=== PATIENT | female | born 1990 | race Two or more races ===

== ENCOUNTER 2016-12-21 13:17 | Emergency (ER) | payer OTHER ==
--- NOTE | 2016-12-21 15:22 | ER Document Report ---
ED General - General Chief Complaint: Chest Pain Stated Complaint: CHEST PAIN, LEFT ARM AND NECK PAIN Time Seen by Provider: 12/21/16 15:15 Mode of Arrival: Ambulatory Information source: Patient Notes: 26-year-old female who is currently on the Mirena to complaints of left-sided chest pain woke her up from sleep at 8 AM this morning. Patient notes it is a sharp pain with radiation to her shoulder down her left arm. Patient admits some shortness of breath with it. Patient denies any fevers or chills nausea vomiting or diarrhea. Patient denies any previous similar episodes. Patient denies any other DVT or PE risk factors TRAVEL OUTSIDE OF THE [place] IN LAST 30 DAYS: No - HPI Onset: Just prior to arrival - 8 a.m. Onset/Duration: Sudden Quality of pain: Sharp Severity: Mild Pain Level: 1 Associated symptoms: Chest pain, Shortness of breath Exacerbated by: Denies Relieved by: Denies Similar symptoms previously: No Recently seen / treated by doctor: No - Related Data Allergies/Adverse Reactions: iodine [Iodine] Allergy (Verified 12/21/16 13:55) Penicillins Allergy (Verified 12/21/16 13:55) Past Medical History - Social History Smoking Status: Never Smoker Cigarette use (# per day): No Chew tobacco use (# tins/day): No Smoking Education Provided: No Frequency of alcohol use: None Drug Abuse: None Family History: CAD - after age 40, DM, Hypertension, Thyroid Disfunction Patient has suicidal ideation: No Patient has homicidal ideation: No Pulmonary Medical History: Reports: Hx Asthma Renal/ Medical History: Denies: Hx Peritoneal Dialysis Past Surgical History: Reports: Hx Section - 2013, Hx Oral Surgery - jaw - Immunizations Hx Diphtheria, Pertussis, Tetanus Vaccination: Yes Review of Systems - Review of Systems Notes: REVIEW OF SYSTEMS: CONSTITUTIONAL : Denies fever, chills, or sweats. Denies recent illness. EENT: Denies eye, ear, throat, or mouth pain or symptoms. Denies nasal or sinus congestion or discharge. Denies throat, tongue, or mouth swelling or difficulty swallowing. CARDIOVASCULAR: Admits to chest pain RESPIRATORY: Admits to shortness of breath GASTROINTESTINAL: Denies abdominal pain or distention. Denies nausea, vomiting , or diarrhea. Denies blood in vomitus, stools, or per rectum. Denies black, tarry stools. Denies constipation. GENITOURINARY: Denies difficulty urinating, painful urination, burning, frequency, blood in urine, or discharge. FEMALE GENITOURINARY: Denies vaginal bleeding, heavy or abnormal periods, irregular periods. Denies vaginal discharge or odor. MUSCULOSKELETAL: Denies back or neck pain or stiffness. Denies joint pain or swelling. SKIN: Denies rash, lesions or sores. HEMATOLOGIC : Denies easy bruising or bleeding. LYMPHATIC: Denies swollen, enlarged glands. NEUROLOGICAL: Denies confusion or altered mental status. Denies passing out or loss of consciousness. Denies dizziness or lightheadedness. Denies headache. Denies weakness or paralysis or loss of use of either side. Denies problems with gait or speech. Denies sensory loss, numbness, or tingling. Denies seizures. PHYSICAL EXAMINATION: GENERAL: Well-appearing, well-nourished and in no acute distress. HEAD: Atraumatic, normocephalic. EYES: Pupils equal round and reactive to light, extraocular movements intact, conjunctiva are normal. ENT: Nares patent, oropharynx clear without exudates. Moist mucous membranes. NECK: Normal range of motion, supple without lymphadenopathy LUNGS: Breath sounds clear to auscultation bilaterally and equal. No wheezes rales or rhonchi. HEART: Regular rate and rhythm without murmurs ABDOMEN: Soft, nontender, nondistended abdomen. No guarding, no rebound. No masses appreciated. Female : deferred Musculoskeletal: Normal range of motion, no pitting or edema. No cyanosis. NEUROLOGICAL: Cranial nerves grossly intact. Normal speech, normal gait. Normal sensory, motor exams PSYCH: Normal mood, normal affect. SKIN: Warm, Dry, normal turgor, no rashes or lesions noted. PSYCHIATRIC: Denies anxiety or stress. Denies depression, suicidal ideation, or homicidal ideation. ALL OTHER SYSTEMS REVIEWED AND NEGATIVE. Dictation was performed using [employer] voice recognition software Physical Exam - Vital signs Vitals: Temp Pulse Resp BP Pulse Ox 97.9 F 84 16 130/78 H 98 12/21/16 13:56 12/21/16 13:56 12/21/16 13:56 12/21/16 13:56 12/21/16 13:56 Course - Re-evaluation Re-evalutation: 12/21/16 15:22 Patient looks very benign, EKG is normal at this time, lab work imaging are pending, will rule out a PE given that patient is extremely low risk with a d- dimer 12/21/16 17:05 D-dimer was not elevated, she has been resting comfortably is in no distress. I will at this point discharge her with close follow-up. Patient is happy with this plan After performing a Medical Screening Examination, I estimate there is LOW risk for RUPTURED ESOPHAGUS, PNEUMOTHORAX, PULMONARY EMBOLISM, ACUTE CORONARY SYNDROME, OR THORACIC AORTIC DISSECTION, thus I consider the discharge disposition reasonable. I have reevaluated this patient multiple times and no significant life threatening changes are noted. The patient and I have discussed the diagnosis and risks, and we agree with discharging home with close follow-up. We also discussed returning to the Emergency Department immediately if new or worsening symptoms occur. We have discussed the symptoms which are most concerning (e.g., bloody sputum, worsening pain or shortness of breath) that necessitate immediate return. - Vital Signs Vital signs: Temp Pulse Resp BP Pulse Ox 97.9 F 84 16 130/78 H 98 12/21/16 13:56 12/21/16 13:56 12/21/16 13:56 12/21/16 13:56 12/21/16 13:56 - Laboratory Result Diagrams: 12/21/16 16:10 12/21/16 16:10 Laboratory results interpreted by me: 12/21/16 16:10 Alkaline Phosphatase 134 H Total Protein 8.5 H - Diagnostic Test Radiology reviewed: Image reviewed, Reports reviewed - EKG Interpretation by [facility] EKG shows normal: Sinus rhythm, [place], Intervals, QRS Complexes Discharge - Discharge Clinical Impression: Chest pain of uncertain etiology Condition: Stable Disposition: HOME, SELF-CARE Instructions: Chest Pain of Unclear Cause ([facility]) Prescriptions: Naproxen 500 mg PO BID #30 tablet Referrals: LEVON DREW MD [ACTIVE STAFF] - Follow up tomorrow
[2016-12-21 16:27] LABS: ABSOLUTE BASOPHILS # (AUTO) 0.1 10^3/uL (0.0-0.2); ABSOLUTE EOSINOPHILS # (AUTO) 0.3 10^3/uL (0.0-0.6); ABSOLUTE LYMPHOCYTES (AUTO) 1.8 10^3/uL (0.5-4.7); ABSOLUTE MONOCYTES (AUTO) 0.5 10^3/uL (0.1-1.4); ABSOLUTE NEUT (AUTO) 4.3 10^3/uL (1.7-8.2); BASOPHILS % (AUTO) 0.9 % (0-2); EOSINOPHILS % (AUTO) 4.8 % (0-6); HEMATOCRIT 39.9 % (36.0-47.0); HEMOGLOBIN 13.1 g/dL (12.0-15.5); HGB HCT DIFFERENCE -0.6; LYMPHOCYTES % (AUTO) 25.5 % (13-45); MEAN CORPUSCULAR HEMOGLOBIN 28.1 pg (27.0-33.4); MEAN CORPUSCULAR HGB CONC 32.7 g/dL (32.0-36.0); MEAN CORPUSCULAR VOLUME 86 fl (80-97); MONOCYTES % (AUTO) 7.5 % (3-13); RED BLOOD COUNT 4.65 10^6/uL (3.72-5.28); RED CELL DISTRIBUTION WIDTH 13.5 % (11.5-14.0); SEGMENTED NEUTROPHILS % (AUTO) 61.3 % (42-78); WHITE BLOOD COUNT 6.9 10^3/uL (4.0-10.5)
[2016-12-21 16:41] LABS: ALANINE AMINOTRANSFERASE 27 U/L (9-52); ALBUMIN 4.6 g/dL (3.5-5.0); ALKALINE PHOSPHATASE 134 U/L (38-126); ANION GAP 14 (5-19); ASPARTATE AMINO TRANSFERASE 27 U/L (14-36); BILIRUBIN,DIRECT 0.3 mg/dL (0.0-0.4); BILIRUBIN,TOTAL 0.4 mg/dL (0.2-1.3); BLOOD UREA NITROGEN 9 mg/dL (7-20); CALCIUM 10.2 mg/dL (8.4-10.2); CARBON DIOXIDE 23 mmol/L (22-30); CHLORIDE 106 mmol/L (98-107); CREATINE KINASE 88 U/L (30-135); CREATININE RESULT 0.71 mg/dL (0.52-1.25); GLUCOSE 87 mg/dL (75-110); POTASSIUM 4.2 mmol/L (3.6-5.0); SODIUM 142.9 mmol/L (137-145); TOTAL PROTEIN 8.5 g/dL (6.3-8.2)
--- NOTE | 2016-12-21 16:42 | RADIOLOGY REPORT (SQ) ---
EXAM DESCRIPTION: CHEST PA/LAT COMPLETED DATE/TIME: 12/21/2016 4:28 pm REASON FOR STUDY: sob COMPARISON: 01/29/2012 EXAM PARAMETERS: NUMBER OF VIEWS: two views TECHNIQUE: Digital Frontal and Lateral radiographic views of the chest acquired. RADIATION DOSE: NA LIMITATIONS: none FINDINGS: LUNGS AND PLEURA: No opacities, masses or pneumothorax. No pleural effusion. MEDIASTINUM AND HILAR STRUCTURES: No masses or contour abnormalities. HEART AND VASCULAR STRUCTURES: Heart normal size. No evidence for failure. BONES: No acute findings. HARDWARE: None in the chest. OTHER: No other significant finding. IMPRESSION: NO SIGNIFICANT RADIOGRAPHIC FINDING IN THE CHEST. TECHNICAL DOCUMENTATION: JOB ID: [id number] [employer]- All Rights Reserved
[2016-12-21 16:57] LABS: CREATINE KINASE MB < 0.22 ng/mL (<4.55); TROPONIN I < 0.012 ng/mL
[2016-12-21] MEDS ORDERED: KETOROLAC TROMETHAMINE INJ/PF 30 MG/1 ML SDV IV ONE (17:05)
[2016-12-21 17:27] VITALS: BP 135/81
--- NOTE | 2016-12-22 11:03 | EKG REPORT ---
SEVERITY:- NORMAL ECG - SINUS RHYTHM : Confirmed by: Thao Louie MD 22-Dec-2016 11:02:44
== END 2016-12-21 17:27 | disposition home or self-care (01) ==
LOC: ER 13:17
DX: R07.9 Chest pain, unspecified (principal); M25.512 Pain in left shoulder; R06.02 Shortness of breath; Z97.5 Presence of (intrauterine) contraceptive device; Z88.0 Allergy status to penicillin
CPT/HCPCS: 93005; 99285; 96374; 36415; 82553; 82550; 85025; 80053; 84484; 85379; 71020; 93010; J1885

== ENCOUNTER → 2017-04-17 | Outpatient (CLI) | payer OTHER ==
--- NOTE | 2017-04-17 10:02 | WOMENS IMAGING REPORT ---
EXAM DESCRIPTION: U/S ABDOMEN LIMITED COMPLETED DATE/TIME: 04/17/2017 7:39 am REASON FOR STUDY: RIGHT UPPER QUADRANT PAIN R10.11 RIGHT UPPER QUADRANT PAIN COMPARISON: None. TECHNIQUE: Dynamic and static grayscale images acquired of the abdomen and recorded on PACS. Additio nal selected color Doppler and spectral images recorded. LIMITATIONS: None. FINDINGS: PANCREAS: Midline pancreas unremarkable LIVER: No masses. Echotexture normal. LIVER VASCULATURE: Normal directional flow of the main portal vein and hepatic veins. GALLBLADDER: No stones. Normal wall thickness. No pericholecystic fluid. ULTRASOUND-DETECTED VEGA'S SIGN: Negative. INTRAHEPATIC DUCTS AND COMMON DUCT: CBD and intrahepatic ducts normal caliber. No filling defects. INFERIOR VENA CAVA: Normal flow. AORTA: No aneurysm. RIGHT KIDNEY: Normal size. Normal echogenicity. No solid or suspicious masses. No hydronephrosis. No calcifications. PERITONEAL AND RIGHT PLEURAL SPACE: No ascites or effusions. OTHER: No other significant findings. IMPRESSION: NORMAL RIGHT UPPER QUADRANT ULTRASOUND. TECHNICAL DOCUMENTATION: JOB ID: [id number] [employer]- All Rights Reserved
== END ==
LOC: WI 06:55
PROVIDERS: ATTEND Surgery
DX: R10.11 Right upper quadrant pain (principal)
CPT/HCPCS: 76705

== ENCOUNTER 2017-04-22 18:59 | Emergency (ER) | payer OTHER ==
--- NOTE | 2017-04-22 19:21 | ER Document Report ---
ED Medical Screen (RME) - General TRAVEL OUTSIDE OF THE U.S. IN LAST 30 DAYS: No - General Chief Complaint: Abdominal Pain Stated Complaint: VAGINAL DISCHARGE,WEAK,NAUSEA Time Seen by Provider: 04/22/17 19:17 Notes: Patient is a 27 year old female presenting to the emergency department for pelvic pain and passing clots of bloody mucus. Patient states she had a positive test on Sunday. Patient does have an IUD. Patient states she took the test because something didn't feel right. Patient states she was having some pelvic pain today so she went to [facility]. Patient states that she had a negative test today at [facility] and states they told her that her pelvic pain was from kidney stones. Patient states after leaving [facility] she passed some bloody mucus tissue. Patient did not get an ultrasound. Patient denies any previous kidney stones. (KEARA MACIAS) - Related Data Allergies/Adverse Reactions: iodine [Iodine] Allergy (Verified 04/22/17 19:07) Penicillins Allergy (Verified 04/22/17 19:07) Past Medical History Pulmonary Medical History: Reports: Hx Asthma Renal/ Medical History: Denies: Hx Peritoneal Dialysis Past Surgical History: Reports: Hx Section - 2013, Hx Oral Surgery - jaw - Immunizations Hx Diphtheria, Pertussis, Tetanus Vaccination: Yes - Vital signs Vitals: Temp Pulse Resp BP Pulse Ox 97.7 F 77 16 142/85 H 99 04/22/17 19:06 04/22/17 19:06 04/22/17 19:06 04/22/17 19:06 04/22/17 19:06 - Notes Notes: GENERAL: Alert, interacts well. No acute distress. LUNGS: Clear to auscultation bilaterally, no wheezes, rales, or rhonchi. No respiratory distress. HEART: Regular rate and rhythm. No murmurs, gallops, or rubs. ABDOMEN: Soft, non-tender. Non-distended. Bowel sounds present in all 4 quadrants. (KEARA MACIAS) Course - Re-evaluation Re-evalutation: 04/22/17 19:49 Discussed with attending physician at [facility] Keith Kevin, states that she had a negative test, transabdominal ultrasound showed normal uterine stripe, there is no comment on the presence or absence of an IUD, pelvic exam was noted as unremarkable in the record, no comment made on strings for IUD. Patient treated for presumptive kidney stone due to abdominal pain. At time of discharge patient was pain free when leaving [facility], given Percocet for pain as well. (DEVANTE TINSLEY) - Vital Signs Vital signs: Temp Pulse Resp BP Pulse Ox 97.7 F 77 16 142/85 H 99 04/22/17 19:06 04/22/17 19:06 04/22/17 19:06 04/22/17 19:06 04/22/17 19:06 Scribe Documentation - Scribe Written by Nicolase:: Sandor Castaneda 04/22/17 19:50 acting as scribe for :: Julio Cesar
[2017-04-22 20:00] LABS: ABSOLUTE EOSINOPHILS # (AUTO) 0.2 10^3/uL (0.0-0.6); ABSOLUTE LYMPHOCYTES (AUTO) 1.6 10^3/uL (0.5-4.7); ABSOLUTE MONOCYTES (AUTO) 0.5 10^3/uL (0.1-1.4); ABSOLUTE NEUT (AUTO) 6.9 10^3/uL (1.7-8.2); BASOPHILS % (AUTO) 0.5 % (0-2); EOSINOPHILS % (AUTO) 2.2 % (0-6); HEMATOCRIT 40.2 % (36.0-47.0); HEMOGLOBIN 13.7 g/dL (12.0-15.5); HGB HCT DIFFERENCE 0.9; LYMPHOCYTES % (AUTO) 16.8 % (13-45); MEAN CORPUSCULAR HEMOGLOBIN 28.2 pg (27.0-33.4); MEAN CORPUSCULAR VOLUME 83 fl (80-97); MONOCYTES % (AUTO) 5.9 % (3-13); RED BLOOD COUNT 4.84 10^6/uL (3.72-5.28); RED CELL DISTRIBUTION WIDTH 13.5 % (11.5-14.0); SEGMENTED NEUTROPHILS % (AUTO) 74.6 % (42-78); WHITE BLOOD COUNT 9.3 10^3/uL (4.0-10.5)
[2017-04-22 20:01] LABS: APPEARANCE,URINE CLEAR; BILIRUBIN,URINE NEGATIVE (NEGATIVE); GLUCOSE, URINE NEGATIVE (NEGATIVE); KETONES,URINE TRACE mg/dL (NEGATIVE); LEUKOCYTE ESTERASE,URINE NEGATIVE (NEGATIVE); NITRITE,URINE NEGATIVE (NEGATIVE); PROTEIN,URINE NEGATIVE (NEGATIVE); URINE SPECIFIC GRAVITY 1.026; UROBILINOGEN,URINE NEGATIVE mg/dL (<2.0)
[2017-04-22 20:11] LABS: ANION GAP 14 (5-19); BLOOD UREA NITROGEN 9 mg/dL (7-20); CARBON DIOXIDE 23 mmol/L (22-30); CHLORIDE 105 mmol/L (98-107); CREATININE RESULT 0.73 mg/dL (0.52-1.25); GLUCOSE 96 mg/dL (75-110); POTASSIUM 3.8 mmol/L (3.6-5.0); SODIUM 142.3 mmol/L (137-145)
--- NOTE | 2017-04-22 21:44 | ER Document Report ---
ED GI/ <JOCELYNE LEDBETTER - Last Filed: 04/22/17 22:59> - General Mode of Arrival: Ambulatory Information source: Patient TRAVEL OUTSIDE OF THE [place] IN LAST 30 DAYS: No - HPI Patient complains to provider of: Abdominal pain Onset: Other - see narrative Quality of pain: Achy Location: Pelvis Similar symptoms previously: Yes Recently seen / treated by doctor: Yes <NEREYDA JORGE - Last Filed: 04/23/17 01:33> - General Chief Complaint: Abdominal Pain Stated Complaint: VAGINAL DISCHARGE,WEAK,NAUSEA Time Seen by Provider: 04/22/17 19:17 Notes: Patient is a 27 year old female that presents to the emergency department today with complaints of pelvic pain and vaginal bleeding. Patient states that she took an at home test a few days ago because "something did not feel right" and it was positive. Patient has a mirena IUD in place. Patient states that she went to [facility] today because of pelvic pain which she has had for a few days. Patient states today at [facility] the doctor did a bedside transabdominal ultrasound and a clean catch urine. Patient states the test there was negative and there was blood in her urine. After calling [facility], there was comment in their records about a normal endometrial stripe but no mention of IUD visualization. Patient states she was told because of the blood in her urine , they believed her pelvic pain was coming from kidney stones however the patient has no history of kidney stones. Patient states she has not had any vaginal discharge. Patient is . (NEREYDA JORGE) - Related Data Allergies/Adverse Reactions: iodine [Iodine] Allergy (Verified 04/22/17 19:07) Penicillins Allergy (Verified 04/22/17 19:07) Past Medical History - General Information source: Patient - Social History Smoking Status: Never Smoker Cigarette use (# per day): No Chew tobacco use (# tins/day): No Frequency of alcohol use: None Drug Abuse: None Lives with: Family Family History: Reviewed & Not Pertinent, CAD - after age 40, DM, Hypertension, Thyroid Disfunction Pulmonary Medical History: Reports: Hx Asthma Endocrine Medical History: Reports: Hx Hypothyroidism Past Surgical History: Reports: Hx Section - 2014, Hx Oral Surgery - jaw - Immunizations Hx Diphtheria, Pertussis, Tetanus Vaccination: Yes <NEREYDA JORGE - Last Filed: 04/23/17 01:33> Review of Systems - Review of Systems Constitutional: No symptoms reported EENT: No symptoms reported Cardiovascular: No symptoms reported Respiratory: No symptoms reported Gastrointestinal: No symptoms reported Genitourinary: No symptoms reported Female Genitourinary: See HPI, - ?, Vaginal bleeding, Other - pelvic pain. denies: Vaginal discharge Musculoskeletal: No symptoms reported Skin: No symptoms reported Hematologic/Lymphatic: No symptoms reported Neurological/Psychological: No symptoms reported -: Yes All other systems reviewed and negative <NEREYDA JORGE - Last Filed: 04/23/17 01:33> Physical Exam - Genitourinary External exam: Normal Speculum exam: Cervix closed - There is some old deng-black bloody debris noted in the vagina. There is no cervical discharge noted. There is no active bleeding. The IUD string is seen. The uterus and adnexa are quite tender on bimanual exam. Bimanuel exam: Cervical motion tender, Adnexal mass - There seems to be a cystic type enlargement to the right ovary that was not felt on the left side. Ultrasound did not confirm this., Adnexal tenderness <JOCELYNE LEDBETTER - Last Filed: 04/22/17 22:59> <NEREYDA JORGE - Last Filed: 04/23/17 01:33> - Vital signs Vitals: Temp Pulse Resp BP Pulse Ox 97.7 F 77 16 142/85 H 99 04/22/17 19:06 04/22/17 19:06 04/22/17 19:06 04/22/17 19:06 04/22/17 19:06 - Notes Notes: Physical Exam: General: Alert, appears well. HEENT: Normocephalic. Atraumatic. PERRL. Extraocular movements intact. Oropharynx clear. Neck: Supple. Non-tender. Respiratory: No respiratory distress. Clear and equal breath sounds bilaterally. Cardiovascular: Regular rate and rhythm. Abdominal: Normal Inspection. Non-tender. No distension. Normal Bowel Sounds. Back: Non-tender. No deformity or step off. Extremities: Moves all four extremities. Upper extremities: Normal inspection. Normal ROM. Lower extremities: Normal inspection. No edema. Normal ROM. Neurological: Normal cognition. AAOx4. Normal speech. Psychological: Normal affect. Normal Mood. Skin: Warm. Dry. Normal color. (LUISITO,NEREYDA) Course - Laboratory Result Diagrams: 04/22/17 19:43 04/22/17 19:43 - Diagnostic Test Radiology reviewed: Reports reviewed - Transvaginal ultrasound is unremarkable showing the IUD in good position. Left ovary is not seen, right ovary no masses or cysts seen. <JOCELYNE LEDBETTER - Last Filed: 04/22/17 22:59> - Laboratory Result Diagrams: 04/22/17 19:43 04/22/17 19:43 <NEREYDA JORGE - Last Filed: 04/23/17 01:33> - Vital Signs Vital signs: Temp Pulse Resp BP Pulse Ox 97.7 F 76 18 126/79 H 98 04/22/17 23:19 04/22/17 23:19 04/22/17 23:19 04/22/17 23:19 04/22/17 23:19 - Laboratory Laboratory results interpreted by me: 04/22/17 19:43 Urine Ketones TRACE H Urine Blood MODERATE H Discharge <JOCELYNE LEDBETTER - Last Filed: 04/22/17 22:59> <NEREYDA JORGE - Last Filed: 04/23/17 01:33> - Discharge Clinical Impression: Pelvic pain, Vaginal bleeding Condition: Stable Disposition: HOME, SELF-CARE Additional Instructions: Pelvic Pain There are many causes of pain in the pelvic area. The cause could be the tubes, ovaries, uterus, intestines, appendix, pelvic muscles and connective tissue, or the urinary tract. The cause of your pelvic pain is not clear. However, it seems safe to treat you outside the hospital. If the pain sounds like a temporary problem, we sometimes wait to see if it goes away. Other patients may need additional tests, such as pelvic ultrasound or cultures. Conditions may change. Call us or come back for reexamination if any problems occur, such as: (1) Pain that becomes more severe, steady, or becomes concentrated in one specific area. Also, pain that is more severe with movement or coughing. (2) Vomiting that persists or becomes more frequent. (3) Blood in the vomitus, urine, or bowel movements. Blood in the stool may have a tarry or black appearance. (4) Shaking chills or fever greater than 100 degrees. (5) The abdomen becomes more distended or swollen. (6) Bowel movements cease. (7) Heavy vaginal bleeding. TAKE THE MEDICATION PRESCRIBED. TAKE IBUPROFEN OR ALEVE FOR PAIN. FOLLOW UP WITH YOUR DOCTOR OR [facility] THIS WEEK FOR RECHECK. Prescriptions: Doxycycline Hyclate 100 mg PO BID #14 tablet Forms: Return to Work Scribe Attestation: 04/22/17 23:04 I personally performed the services described in the documentation, reviewed and edited the documentation which was dictated to the scribe in my presence, and it accurately records my words and actions. (JOCELYNE LEDBETTER) Scribe Documentation - Scribe Written by Sandor:: Sandor Waters, 04/22/2017 [id number] acting as scribe for :: Marge <NEREYDA JORGE - Last Filed: 04/23/17 01:33>
--- NOTE | 2017-04-22 22:56 | RADIOLOGY REPORT (SQ) ---
EXAM DESCRIPTION: U/S NON-OB PELVIS TV W/O DOP COMPLETED DATE/TIME: 04/22/2017 10:37 pm REASON FOR STUDY: IUD, cramps, clots,R ovary mass on bimanual exam COMPARISON: None. TECHNIQUE: Dynamic and static grayscale images acquired of the pelvis via transvaginal approach and recorded on PACS. Additional selected color Doppler and spectral images recorded. LIMITATIONS: Body habitus. FINDINGS: UTERUS: Contour normal. No mass. ENDOMETRIAL STRIPE: No thickening. IUD artifact noted. CERVIX: No nabothian cysts. RIGHT OVARY: No abnormal masses. RIGHT OVARY DOPPLER: Normal arterial vascular flow without evidence for torsion. LEFT OVARY: Ovary not visualized. LEFT OVARY DOPPLER: Ovary not visualized. FREE FLUID: None noted. OTHER: No other significant finding. MEASUREMENTS: UTERUS: 9 x 4 x 6 cm ENDOMETRIAL STRIPE: 5 mm RIGHT OVARY: 2 x 3 x 2 cm LEFT OVARY: Not visualized. IMPRESSION: Normal appearance of the uterus and right ovary. IUD artifact noted. Left ovary not se en. TECHNICAL DOCUMENTATION: JOB ID: [id number]- All Rights Reserved
[2017-04-22] MEDS ORDERED: DOXYCYCLINE HYCLATE 100 MG TABLET PO ONE (23:01)
[2017-04-22] MEDS ORDERED: HYDROCODONE/ACETAMINOPHEN 5-325 MG 6 TAB/DSPK PO PRN (23:01)
[2017-04-22 23:20] VITALS: BP 126/79
[2017-04-22 23:23] LABS: CHLAM PCR NOT DETECTED (NOT DETECT)
== END 2017-04-22 23:20 | disposition home or self-care (01) ==
LOC: ER 18:59
DX: R10.2 Pelvic and perineal pain (principal); N93.8 Other specified abnormal uterine and vaginal bleeding; Z97.5 Presence of (intrauterine) contraceptive device
CPT/HCPCS: 36415; 76830; 80048; 81001; 84703; 85025; 87210; 87491; 87591; 99284

== ENCOUNTER 2017-08-27 08:40 | Emergency (ER) | payer OTHER ==
[2017-08-27] MEDS ORDERED: ASPIRIN 81 MG TABLET, CHEWABLE PO ONE (09:19)
[2017-08-27] MEDS ORDERED: DIPHENHYDRAMINE HCL 50 MG/ML VIAL IV ONE (09:20)
[2017-08-27] MEDS ORDERED: NORMAL SALINE 1000 ML 1,000 ML IV ONE (09:20)
[2017-08-27] MEDS ORDERED: PROCHLORPERAZINE EDISYLATE INJ 10 MG/2 ML VIAL IV ONE (09:21)
[2017-08-27 09:59] LABS: ABSOLUTE EOSINOPHILS # (AUTO) 0.2 10^3/uL (0.0-0.6); ABSOLUTE LYMPHOCYTES (AUTO) 1.3 10^3/uL (0.5-4.7); ABSOLUTE MONOCYTES (AUTO) 0.4 10^3/uL (0.1-1.4); ABSOLUTE NEUT (AUTO) 3.4 10^3/uL (1.7-8.2); BASOPHILS % (AUTO) 0.7 % (0-2); EOSINOPHILS % (AUTO) 4.3 % (0-6); HEMATOCRIT 35.2 % (36.0-47.0); LYMPHOCYTES % (AUTO) 24.7 % (13-45); MEAN CORPUSCULAR HEMOGLOBIN 28.4 pg (27.0-33.4); MEAN CORPUSCULAR HGB CONC 33.9 g/dL (32.0-36.0); MEAN CORPUSCULAR VOLUME 84 fl (80-97); MONOCYTES % (AUTO) 7.1 % (3-13); PLATELET COUNT 247 10^3/uL (150-450); RED BLOOD COUNT 4.21 10^6/uL (3.72-5.28); RED CELL DISTRIBUTION WIDTH 14.5 % (11.5-14.0); SEGMENTED NEUTROPHILS % (AUTO) 63.2 % (42-78); TOTAL CELLS COUNTED % (AUTO) 100 %; WHITE BLOOD COUNT 5.4 10^3/uL (4.0-10.5)
--- NOTE | 2017-08-27 10:05 | RADIOLOGY REPORT (SQ) ---
EXAM DESCRIPTION: CHEST PA/LAT COMPLETED DATE/TIME: 08/27/2017 9:50 am REASON FOR STUDY: cp COMPARISON: [id number] EXAM PARAMETERS: NUMBER OF VIEWS: two views TECHNIQUE: Digital Frontal and Lateral radiographic views of the chest acquired. RADIATION DOSE: NA LIMITATIONS: none FINDINGS: LUNGS AND PLEURA: No opacities, masses or pneumothorax. No pleural effusion. MEDIASTINUM AND HILAR STRUCTURES: No masses or contour abnormalities. HEART AND VASCULAR STRUCTURES: Heart normal size. No evidence for failure. BONES: No acute findings. HARDWARE: None in the chest. OTHER: No other significant finding. IMPRESSION: NO SIGNIFICANT RADIOGRAPHIC FINDING IN THE CHEST. TECHNICAL DOCUMENTATION: JOB ID: [id number] [employer]- All Rights Reserved
--- NOTE | 2017-08-27 10:13 | EKG REPORT ---
SEVERITY:- NORMAL ECG - SINUS RHYTHM : Confirmed by: Antoinette Lopez 27-Aug-2017 10:12:59
[2017-08-27 10:24] LABS: ALANINE AMINOTRANSFERASE 24 U/L (9-52); ALBUMIN 3.9 g/dL (3.5-5.0); ALKALINE PHOSPHATASE 84 U/L (38-126); ANION GAP 9 (5-19); ASPARTATE AMINO TRANSFERASE 22 U/L (14-36); BILIRUBIN,DIRECT 0.3 mg/dL (0.0-0.4); BILIRUBIN,TOTAL 0.4 mg/dL (0.2-1.3); BLOOD UREA NITROGEN 6 mg/dL (7-20); CALCIUM 9.9 mg/dL (8.4-10.2); CARBON DIOXIDE 26 mmol/L (22-30); CHLORIDE 108 mmol/L (98-107); CREATINE KINASE 125 U/L (30-135); GLUCOSE 83 mg/dL (75-110); POTASSIUM 3.1 mmol/L (3.6-5.0); SODIUM 142.7 mmol/L (137-145); TOTAL PROTEIN 6.8 g/dL (6.3-8.2)
[2017-08-27 10:33] LABS: CREATINE KINASE MB < 0.22 ng/mL (<4.55); TROPONIN I < 0.012 ng/mL
[2017-08-27] MEDS ORDERED: POTASSIUM CHLORIDE 10 MEQ TABLET.SA PO ONE ×2 (10:50→11:04)
--- NOTE | 2017-08-27 11:59 | ER Document Report ---
ED General - General Chief Complaint: Headache Stated Complaint: HEADACHE Time Seen by Provider: 08/27/17 09:14 Mode of Arrival: Ambulatory Information source: Patient Notes: Patient presents with left-sided headache that started around 630 this morning. Patient also reports left-sided chest pain that radiates to her shoulder area. Patient complains of tingling to her left hand. Patient denies any arm symptoms. Patient denies any photophobia or phonophobia. Patient denies any fever, nausea, vomiting or dizziness. TRAVEL OUTSIDE OF THE [place] IN LAST 30 DAYS: No - HPI Onset: This morning Onset/Duration: Gradual Pain Level: 4 Associated symptoms: Chest pain, Headache. denies: Nonproductive cough, Productive cough, Diarrhea, Fever, Nausea, Vomiting Exacerbated by: Denies Relieved by: Denies Similar symptoms previously: No Recently seen / treated by doctor: No - Related Data Allergies/Adverse Reactions: iodine [Iodine] Allergy (Verified 04/22/17 19:07) Penicillins Allergy (Verified 04/22/17 19:07) Past Medical History - General Information source: Patient - Social History Smoking Status: Never Smoker Chew tobacco use (# tins/day): No Frequency of alcohol use: None Drug Abuse: None Occupation: clinical services assistant Lives with: Family Family History: Reviewed & Not Pertinent, CAD - after age 42, DM, Hypertension, Thyroid Disfunction Patient has suicidal ideation: No Patient has homicidal ideation: No Pulmonary Medical History: Reports: Hx Asthma Endocrine Medical History: Reports: Hx Hypothyroidism Renal/ Medical History: Denies: Hx Peritoneal Dialysis Past Surgical History: Reports: Hx Abdominal Surgery - Gastric sleeve, Hx Section - 2013, Hx Oral Surgery - jaw - Immunizations Hx Diphtheria, Pertussis, Tetanus Vaccination: Yes Review of Systems - Review of Systems Constitutional: No symptoms reported. denies: Fever, Recent illness EENT: No symptoms reported Cardiovascular: Chest pain. denies: Lightheaded Respiratory: No symptoms reported. denies: Cough, Short of breath Gastrointestinal: No symptoms reported. denies: Nausea, Vomiting Genitourinary: No symptoms reported. denies: Dysuria, Flank pain Female Genitourinary: No symptoms reported. denies: Musculoskeletal: Other - Left-sided chest pain radiates to left shoulder area. denies: Back pain Skin: No symptoms reported Hematologic/Lymphatic: No symptoms reported Neurological/Psychological: Tingling - Left hand Physical Exam - Vital signs Vitals: Temp Pulse Resp BP Pulse Ox 98.4 F 85 12 131/81 H 99 08/27/17 08:45 08/27/17 08:45 08/27/17 08:45 08/27/17 08:45 08/27/17 08:45 - General General appearance: Appears well, Alert In distress: None - HEENT Head: Normocephalic, Atraumatic Eyes: Normal Conjunctiva: Normal Eyelashes: Normal Pupils: PERRL Ears: Normal External canal: Normal Sinus: Normal Nasal: Normal Mucous membranes: Normal Pharynx: Normal Neck: Normal, Supple. No: Lymphadenopathy, Meningismus - Respiratory Respiratory status: No respiratory distress Chest status: Tender. No: Pain with cough Breath sounds: Normal. No: Rales, Rhonchi, Stridor, Wheezing Chest palpation: Tender. No: Subcutaneous emphysema, Wounds - Cardiovascular Rhythm: Regular Heart sounds: S1 appreciated, S2 appreciated Murmur: No - Abdominal Inspection: Normal Tenderness: Nontender - Back Back: Normal, Nontender. No: CVA tenderness - Extremities General upper extremity: Normal inspection, Nontender, Normal color, Normal strength. No: Edema General lower extremity: Normal inspection, Nontender, Normal color, Normal strength. No: Edema - Neurological Neuro grossly intact: Yes Cognition: Normal Jah Coma Scale Eye Opening: Spontaneous [place] Coma Scale Verbal: Oriented Jah Coma Scale Motor: Obeys Commands [place] Coma Scale Total: 15 Speech: Normal Cranial nerves: Normal. No: Facial palsy Motor strength normal: LUE, RUE, LLE, RLE - Psychological Associated symptoms: Normal affect, Normal mood - Skin Skin Temperature: Warm Skin Moisture: Dry Skin Color: Normal Course - Re-evaluation Re-evalutation: 08/27/17 11:00 Patient reports that headache pain has resolved. Patient denies any vomiting or diarrhea. Patient denies any previous history of hypokalemia. Consulted with Dr. Adams regarding patient presentation, recommends giving patient 40 mEq of potassium here in checking her magnesium. And can discharge patient home with 10 mEq daily for the next few days. 08/27/17 12:00 Patient denies any complaints at this time. Discussed importance of following up with her primary doctor in 2 days to have her electrolytes rechecked. Patient encouraged to increase foods rich in potassium in her diet. 08/27/17 12:01 The patient has atypical chest pain as the patient's chest pain is not suggestive of pulmonary embolus, cardiac ischemia, aortic dissection, or other serious etiology. Given the extremely low risk of these diagnoses for the test in evaluation for these possibilities does not appear to be indicated at this time. Patient has been instructed to return if the symptoms worsen or change in any way. No concern for PE, patient PERC negative and heart score of 1. - Vital Signs Vital signs: Temp Pulse Resp BP Pulse Ox 98.4 F 85 15 104/56 L 98 08/27/17 08:45 08/27/17 08:45 08/27/17 12:01 08/27/17 12:01 08/27/17 12:01 - Laboratory Result Diagrams: 08/27/17 09:35 08/27/17 09:35 Laboratory results interpreted by me: 08/27/17 08/27/17 09:35 09:35 Hct 35.2 L RDW 14.5 H Potassium 3.1 L Chloride 108 H BUN 6 L 08/27/17 12:01 Labs- Entire Visit 08/27/17 08/27/17 08/27/17 09:35 09:35 09:35 WBC 5.4 RBC 4.21 Hgb 12.0 Hct 35.2 L MCV 84 MCH 28.4 MCHC 33.9 RDW 14.5 H Plt Count 247 Seg Neutrophils % 63.2 Lymphocytes % 24.7 Monocytes % 7.1 Eosinophils % 4.3 Basophils % 0.7 Absolute Neutrophils 3.4 Absolute Lymphocytes 1.3 Absolute Monocytes 0.4 Absolute Eosinophils 0.2 Absolute Basophils 0.0 Sodium 142.7 Potassium 3.1 L Chloride 108 H Carbon Dioxide 26 Anion Gap 9 BUN 6 L Creatinine 0.65 Est GFR ( Amer) > 60 Est GFR (Non-Af Amer) > 60 Glucose 83 Calcium 9.9 Magnesium Total Bilirubin 0.4 Direct Bilirubin 0.3 Neonat Total Bilirubin Not Reportable Neonat Direct Bilirubin Not Reportable Neonat Indirect Bili Not Reportable AST 22 ALT 24 Alkaline Phosphatase 84 Creatine Kinase 125 CK-MB (CK-2) < 0.22 Troponin I < 0.012 Total Protein 6.8 Albumin 3.9 Serum HCG, Qual 08/27/17 08/27/17 09:35 09:35 WBC RBC Hgb Hct MCV MCH MCHC RDW Plt Count Seg Neutrophils % Lymphocytes % Monocytes % Eosinophils % Basophils % Absolute Neutrophils Absolute Lymphocytes Absolute Monocytes Absolute Eosinophils Absolute Basophils Sodium Potassium Chloride Carbon Dioxide Anion Gap BUN Creatinine Est GFR ( Amer) Est GFR (Non-Af Amer) Glucose Calcium Magnesium 2.0 Total Bilirubin Direct Bilirubin Neonat Total Bilirubin Neonat Direct Bilirubin Neonat Indirect Bili AST ALT Alkaline Phosphatase Creatine Kinase CK-MB (CK-2) Troponin I Total Protein Albumin Serum HCG, Qual NEGATIVE - Diagnostic Test Radiology reviewed: Reports reviewed - EKG Interpretation by Me EKG shows normal: Sinus rhythm Rate: Normal Discharge - Discharge Clinical Impression: Left hand paresthesia, Hypokalemia Chest pain Qualifiers: Chest pain type: unspecified Qualified Code(s): R07.9 - Chest pain, unspecified Headache Qualifiers: Headache type: unspecified Headache chronicity pattern: unspecified pattern Intractability: not intractable Qualified Code(s): R51 - Headache Condition: Stable Disposition: HOME, SELF-CARE Instructions: Intravenous Compazine for Headaches ([facility]), Chest Pain of Unclear Cause ([facility]), Use of Diphenhydramine, Headache ([facility]), Hypokalemia ([facility]) Additional Instructions: Return immediately for any new or worsening symptoms Followup with your primary care provider, call tomorrow to make a followup appointment Recheck with your primary doctor to have your electrolytes rechecked in 2 days. Prescriptions: Potassium Chloride [Klor-Con 10] 10 meq PO DAILY #4 tablet.sa Forms: Return to Work Referrals: [facility] [Provider Group] - Follow up as needed LEVON DREW MD [ACTIVE STAFF] - Follow up as needed
[2017-08-27 12:40] VITALS: BP 104/56
== END 2017-08-27 12:53 | disposition home or self-care (01) ==
LOC: ER 08:40
DX: R20.0 Anesthesia of skin (principal); E87.6 Hypokalemia; R07.9 Chest pain, unspecified; R51 Headache; M25.512 Pain in left shoulder; M79.642 Pain in left hand
CPT/HCPCS: 93005; 99284; 96361; 96374; 96375; 36415; 82553; 82550; 83735; 84703; 85025; 80053; 84484; 71046; 93010; J1200; J0780; J7030

== ENCOUNTER 2017-10-29 08:52 | Emergency (ER) | payer OTHER ==
[2017-10-29] MEDS ORDERED: ALBUTEROL SULFATE 0.083% NEB 2.5 MG/3 ML AMPUL NEB ONE (09:33)
[2017-10-29] MEDS ORDERED: PREDNISONE 20 MG TABLET PO ONE (09:33)
--- NOTE | 2017-10-29 10:04 | ER Document Report ---
ED General - General Chief Complaint: Cough Stated Complaint: DIFFICULTY BREATHING Time Seen by Provider: 10/29/17 09:33 Notes: Patient reports 2 days of shortness of breath and a flare of her asthma. She states she has an inhaler at home but no other asthma medications. It is worse with exertion and better with rest. She denies any pain. She does state she has a chronic constant cough. It is nonproductive. Symptoms are mild to moderate. They are intermittent. There is no known radiation symptoms. TRAVEL OUTSIDE OF THE [place] IN LAST 30 DAYS: No - Related Data Allergies/Adverse Reactions: iodine [Iodine] Allergy (Verified 10/11/17 08:22) Penicillins Allergy (Verified 10/11/17 08:22) Past Medical History - General Information source: Patient - Social History Smoking Status: Never Smoker Chew tobacco use (# tins/day): No Frequency of alcohol use: None Drug Abuse: None Family History: Reviewed & Not Pertinent, CAD - after age 40, DM, Hypertension, Thyroid Disfunction Patient has suicidal ideation: No Patient has homicidal ideation: No Pulmonary Medical History: Reports: Hx Asthma Endocrine Medical History: Reports: Hx Hypothyroidism Renal/ Medical History: Denies: Hx Peritoneal Dialysis Past Surgical History: Reports: Hx Abdominal Surgery - Gastric sleeve, Hx Section - 2013, Hx Oral Surgery - jaw - Immunizations Hx Diphtheria, Pertussis, Tetanus Vaccination: Yes Review of Systems - Review of Systems Constitutional: denies: Chills, Fever Cardiovascular: denies: Chest pain, Palpitations Respiratory: Cough, Short of breath -: Yes All other systems reviewed and negative Physical Exam - Vital signs Vitals: Temp Pulse Resp BP Pulse Ox 98.0 F 111 H 16 129/74 H 98 10/29/17 09:02 10/29/17 09:02 10/29/17 09:02 10/29/17 09:02 10/29/17 09:02 Interpretation: Normal - General General appearance: Appears well, Alert In distress: None - HEENT Head: Normocephalic, Atraumatic Eyes: Normal Pupils: PERRL - Respiratory Respiratory status: No respiratory distress Chest status: Nontender Breath sounds: Normal Chest palpation: Normal - Cardiovascular Rhythm: Regular - HR 98 on my exam Heart sounds: Normal auscultation Murmur: No - Abdominal Inspection: Normal Distension: No distension Bowel sounds: Normal Tenderness: Nontender Organomegaly: No organomegaly - Back Back: Normal, Nontender - Extremities General upper extremity: Normal inspection, Nontender, Normal color, Normal ROM , Normal temperature General lower extremity: Normal inspection, Nontender, Normal color, Normal ROM , Normal temperature, Normal weight bearing. No: Anabella's sign - Neurological Neuro grossly intact: Yes Cognition: Normal Orientation: AAOx4 [place] Coma Scale Eye Opening: Spontaneous [place] Coma Scale Verbal: Oriented [place] Coma Scale Motor: Obeys Commands Jah Coma Scale Total: 15 Speech: Normal Motor strength normal: LUE, RUE, LLE, RLE Sensory: Normal - Psychological Associated symptoms: Normal affect, Normal mood - Skin Skin Temperature: Warm Skin Moisture: Dry Skin Color: Normal Course - Re-evaluation Re-evalutation: 10/29/17 10:00 feels better after neb - Vital Signs Vital signs: Temp Pulse Resp BP Pulse Ox 98.0 F 111 H 16 129/74 H 98 10/29/17 09:02 10/29/17 09:02 10/29/17 09:02 10/29/17 09:02 10/29/17 09:02 Discharge - Discharge Clinical Impression: Acute asthma exacerbation Qualifiers: Asthma severity: mild Asthma persistence: intermittent Qualified Code(s): J45.21 - Mild intermittent asthma with (acute) exacerbation Condition: Stable Disposition: HOME, SELF-CARE Instructions: Asthma ([facility]) Additional Instructions: Please call your family doctor as soon as possible to arrange follow-up Prescriptions: Codeine/Promethazine HCl [Promethazine-Codeine Syrup] 10 ml PO Q4 PRN 4 Days #1 bottle PRN Reason: Prednisone 60 mg PO DAILY 5 Days #15 tablet Sulfamethoxazole/Trimethoprim [Bactrim Ds Tablet] 1 each PO BID 7 Days #14 tablet Forms: Return to Work
[2017-10-29 10:13] VITALS: BP 134/75
== END 2017-10-29 10:20 | disposition home or self-care (01) ==
LOC: ER 08:52
DX: J45.21 Mild intermittent asthma with (acute) exacerbation (principal); Z88.0 Allergy status to penicillin
CPT/HCPCS: 94640; 99283; J7512

== ENCOUNTER → 2017-11-15 | Outpatient (CLI) | payer OTHER | LOC: OD 08:19 | PROVIDERS: ATTEND Nurse Practitioner Family | DX: N91.2 Amenorrhea, unspecified (principal) | CPT/HCPCS: 36415; 84702 ==

== ENCOUNTER 2018-01-24 17:12 | Emergency (ER) | payer OTHER ==
--- NOTE | 2018-01-24 17:53 | ER Document Report ---
ED Medical Screen (RME) - General Chief Complaint: Pelvic Pain Stated Complaint: PELVIC PAIN Time Seen by Provider: 01/24/18 17:41 Mode of Arrival: Ambulatory Information source: Patient Notes: I have greeted and performed a rapid initial assessment of this patient. A comprehensive ED assessment and evaluation of the patient, analysis of test results and completion of the medical decision making process will be conducted by additional ED providers. 27-year-old female presents emergency department with complaints of sharp and stabbing pelvic pain. Patient states that she has a history of ovarian cysts and feels that this pain is similar in nature. No alleviating or exacerbating factors. She denies any nausea, vomiting, diarrhea, constipation, dysuria, hematuria, vaginal bleeding or discharge. PHYSICAL EXAMINATION: GENERAL: Patient hunched over in mild distress. HEAD: Atraumatic, normocephalic. EYES: Pupils equal round extraocular movements intact, conjunctiva are normal. ENT: Nares patent NECK: Normal range of motion LUNGS: No respiratory distress Musculoskeletal: Normal range of motion Abdominal: Suprapubic tenderness to palpation. Normal active bowel sounds. NEUROLOGICAL: Normal speech, normal gait. PSYCH: Normal mood, normal affect. SKIN: Warm, Dry, normal turgor, no rashes or lesions noted. TRAVEL OUTSIDE OF THE [place] IN LAST 30 DAYS: No - Related Data Allergies/Adverse Reactions: iodine [Iodine] Allergy (Verified 01/24/18 17:13) Penicillins Allergy (Verified 01/24/18 17:13) Past Medical History Pulmonary Medical History: Reports: Hx Asthma Endocrine Medical History: Reports: Hx Hypothyroidism Renal/ Medical History: Denies: Hx Peritoneal Dialysis Past Surgical History: Reports: Hx Abdominal Surgery - Gastric sleeve, Hx Section - 2013, Hx Oral Surgery - jaw - Immunizations Hx Diphtheria, Pertussis, Tetanus Vaccination: Yes Physical Exam - Vital signs Vitals: Temp Pulse Resp BP Pulse Ox 97.9 F 95 14 129/59 H 98 01/24/18 17:19 01/24/18 17:19 01/24/18 17:19 01/24/18 17:19 01/24/18 17:19 Course - Vital Signs Vital signs: Temp Pulse Resp BP Pulse Ox 97.9 F 95 14 129/59 H 98 01/24/18 17:19 01/24/18 17:19 01/24/18 17:19 01/24/18 17:19 01/24/18 17:19 Doctor's Discharge - Discharge Referrals: KIM ULLOA, [facility] [facility] [Primary Care Provider] - Follow up as needed
--- NOTE | 2018-01-24 19:23 | RADIOLOGY REPORT (SQ) ---
EXAM DESCRIPTION: U/S OB TRANSVAG W/DOPPLER COMPLETED DATE/TIME: 01/24/2018 7:09 pm REASON FOR STUDY: pelvic pain COMPARISON: None. TECHNIQUE: Transvaginal and transabdominal static and realtime grayscale images acquired of the pelv is. Additional selected spectral and color Doppler images recorded. All images stored on PACs. bHCG: Not available. CLINICAL DATES: LMP 01/06/2018 2 weeks 4 days LIMITATIONS: None. FINDINGS: No intrauterine gestation. UTERUS: No masses or anomalies. 9.4 x 4.6 x 4.7 cm. CERVICAL LENGTH: 3.6 cm. Closed. RIGHT ADNEXA: Ovary not seen. No adnexal free fluid. No adnexal masses. LEFT ADNEXA: 2.8 x 2.2 x 2.1 cm. Normal blood flow. There is a 17 mm some very slightly echogenic a melchor within the ovary that has a hypoechoic center. No adnexal free fluid. No adnexal masses. FREE FLUID: None. OTHER: No other significant finding. IMPRESSION: 1. There is no intrauterine gestation. 2. There is a slightly echogenic area in the left ovary with a hypoechoic center. This could repres ent involuting cyst. Is there a positive test? If so cannot exclude an ectopic. 3. Follow-up as clinically indicated. TECHNICAL DOCUMENTATION: JOB ID: [id number] [employer]- All Rights Reserved Reading location - IP/workstation name: [email or web address]
[2018-01-24 21:23] LABS: APPEARANCE,URINE CLEAR; BILIRUBIN,URINE NEGATIVE (NEGATIVE); COLOR,URINE YELLOW; GLUCOSE, URINE NEGATIVE (NEGATIVE); KETONES,URINE TRACE mg/dL (NEGATIVE); LEUKOCYTE ESTERASE,URINE NEGATIVE (NEGATIVE); NITRITE,URINE NEGATIVE (NEGATIVE); PROTEIN,URINE 30 mg/dL (NEGATIVE); URINE SPECIFIC GRAVITY 1.031
[2018-01-24] MEDS ORDERED: IPRATROPIUM/ALBUTEROL 0.5-2.5 MG/3 ML AMPUL NEB ONE (22:01)
[2018-01-24 22:17] LABS: T.VAGINALIS (WET MOUNT) NO TRICHOMONAS SEEN; WBCS (WET MOUNT) NO WBCS SEEN; YEAST (WET MOUNT) NO YEAST SEEN
--- NOTE | 2018-01-24 22:53 | ER Document Report ---
ED General - General Chief Complaint: Pelvic Pain Stated Complaint: PELVIC PAIN Time Seen by Provider: 01/24/18 17:41 Mode of Arrival: Ambulatory TRAVEL OUTSIDE OF THE [place] IN LAST 30 DAYS: No - HPI Patient complains to provider of: Lower pelvic pain Notes: Patient coming in for evaluation of low pelvic pain. Patient states history of ovarian cyst in the past. Patient also states having a slight vaginal discharge. Patient states history of STDs back in 2011 otherwise no other significant history. Patient denies any fevers chills nausea vomiting diarrhea. - Related Data Allergies/Adverse Reactions: iodine [Iodine] Allergy (Verified 01/24/18 17:13) Penicillins Allergy (Verified 01/24/18 17:13) Past Medical History - General Information source: Patient - Social History Smoking Status: Never Smoker Family History: Reviewed & Not Pertinent, CAD - after age 40, DM, Hypertension, Thyroid Disfunction Patient has suicidal ideation: No Patient has homicidal ideation: No Pulmonary Medical History: Reports: Hx Asthma Endocrine Medical History: Reports: Hx Hypothyroidism Renal/ Medical History: Denies: Hx Peritoneal Dialysis Past Surgical History: Reports: Hx Abdominal Surgery - Gastric sleeve, Hx Section - 2013, Hx Oral Surgery - jaw - Immunizations Hx Diphtheria, Pertussis, Tetanus Vaccination: Yes Review of Systems - Review of Systems Constitutional: No symptoms reported EENT: No symptoms reported Cardiovascular: No symptoms reported Respiratory: No symptoms reported Gastrointestinal: No symptoms reported Genitourinary: No symptoms reported Female Genitourinary: No symptoms reported, Vaginal discharge, Other - Pelvic pain Musculoskeletal: No symptoms reported Skin: No symptoms reported Hematologic/Lymphatic: No symptoms reported Neurological/Psychological: No symptoms reported -: Yes All other systems reviewed and negative Physical Exam - Vital signs Vitals: Temp Pulse Resp BP Pulse Ox 97.9 F 95 14 129/59 H 98 01/24/18 17:19 01/24/18 17:19 01/24/18 17:19 01/24/18 17:19 01/24/18 17:19 Interpretation: Normal - General General appearance: Appears well, Alert - HEENT Head: Normocephalic, Atraumatic Eyes: Normal Pupils: PERRL - Respiratory Respiratory status: No respiratory distress Chest status: Nontender Breath sounds: Normal Chest palpation: Normal - Cardiovascular Rhythm: Regular Heart sounds: Normal auscultation Murmur: No - Abdominal Inspection: Normal Distension: No distension Bowel sounds: Normal Tenderness: Nontender Organomegaly: No organomegaly - Genitourinary External exam: Normal Speculum exam: Other - Mild white discharge cervix looks to be normal Bimanuel exam: Normal - Back Back: Normal, Nontender - Extremities General upper extremity: Normal inspection, Nontender, Normal color, Normal ROM , Normal temperature General lower extremity: Normal inspection, Nontender, Normal color, Normal ROM , Normal temperature, Normal weight bearing. No: Anabella's sign - Neurological Neuro grossly intact: Yes Cognition: Normal Orientation: AAOx4 Jah Coma Scale Eye Opening: Spontaneous [place] Coma Scale Verbal: Oriented Jah Coma Scale Motor: Obeys Commands [place] Coma Scale Total: 15 Speech: Normal Motor strength normal: LUE, RUE, LLE, RLE Sensory: Normal - Psychological Associated symptoms: Normal affect, Normal mood - Skin Skin Temperature: Warm Skin Moisture: Dry Skin Color: Normal Course - Re-evaluation Re-evalutation: 01/25/18 00:14 Wet mount does not show any significant pathology. Patient defers treatment at this time prophylactically for gonorrhea chlamydia. Patient does have a slight ovarian cyst test is negative more likely pain related to the ovarian cyst patient's testing did return positive for gonorrhea. Did the charge nurse be aware patient will need to come back for a shot of Rocephin - Vital Signs Vital signs: Temp Pulse Resp BP Pulse Ox 98.2 F 92 16 128/74 H 99 01/24/18 23:05 01/24/18 23:05 01/24/18 23:05 01/24/18 23:05 01/24/18 23:05 - Laboratory Laboratory results interpreted by me: 01/24/18 01/24/18 20:59 21:54 Urine Protein 30 H Urine Ketones TRACE H Urine Urobilinogen 2.0 H Urine Ascorbic Acid 40 H N.gonorrhoeae DNA (PCR) DETECTED H Discharge - Discharge Clinical Impression: Vaginal discharge, Gonorrhea Ovarian cyst Qualifiers: Laterality: unspecified laterality Qualified Code(s): N83.209 - Unspecified ovarian cyst, unspecified side Disposition: HOME, SELF-CARE Instructions: Ovarian Cyst ([facility]), Gonorrhea ([facility]) Additional Instructions: Laboratory results today show that you are not . Ultrasound does show a ovarian cyst more likely causing your abdominal pain. I would recommend taking Tylenol Motrin together for pain control. 600 mg of Motrin along with thousand milligrams of Tylenol. Do this 3 times a day. Please make sure you are drinking plenty water to stay hydrated. Please return to ER for any other concerns. Swabs 90 not showing signs of bacterial vaginosis trichomonas or yeast infection. Gonorrhea and Chlamydia results are pending. Would recommend she call the ER tomorrow during business hours 8 5 for your results. Your testing does show that you are positive for gonorrhea. You will need to be treated please make sure that you have your sexual partners treated as well no sexual intercourse for 2 weeks. Prescriptions: Ibuprofen [Motrin 600 mg Tablet] 600 mg PO Q8HP PRN #90 tablet PRN Reason: Referrals: KIM ULLOA FNP-C [NO LOCAL MD] - Follow up as needed
[2018-01-24 23:08] VITALS: BP 128/74
[2018-01-24 23:48] LABS: CHLAM PCR NOT DETECTED (NOT DETECT)
[2018-01-25 00:12] LABS: GON PCR DETECTED (NOT DETECT)
== END 2018-01-24 23:07 | disposition home or self-care (01) ==
LOC: ER 17:12
DX: N83.201 Unspecified ovarian cyst, right side (principal); A54.9 Gonococcal infection, unspecified; R10.2 Pelvic and perineal pain; E03.9 Hypothyroidism, unspecified; Z88.0 Allergy status to penicillin
CPT/HCPCS: 94640; 99284; 36415; 87210; 84702; 81025; 81001; 87491; 87591; 76817; 93976; J7620

== ENCOUNTER 2018-01-25 16:37 | Emergency (ER) | payer OTHER ==
[2018-01-25 16:41] VITALS: BP 119/84
[2018-01-25] MEDS ORDERED: AZITHROMYCIN 250 MG TABLET PO ONE (16:46)
[2018-01-25] MEDS ORDERED: LIDOCAINE 1% INJ-PF (10 MG/ML) 30 ML SDV INJ ONE (16:46)
[2018-01-25] MEDS ORDERED: CEFTRIAXONE INJ 250 MG VIAL IM ONE (16:46)
--- NOTE | 2018-01-25 16:58 | ER Document Report ---
HPI - HPI Pain Level: 0 Notes: Patient is a 27-year-old female who presents to the ED for treatment for gonorrhea. Patient was evaluated yesterday and had a positive gonorrhea test and was notified this morning to come to the emergency department for treatment. Patient has no other new concerns or complaints. She continues to have right lower pelvic pain that was deemed to be a small ovarian cyst. Patient states that she is otherwise eating and drinking without difficulties. She is urinating normally and having normal bowel movements. Patient is accompanied by her partner who will be going to the health department for treatment. No other concerns or complaints at this time. Patient states that she has had Rocephin in the past as noted in her medical history as well. Denies any headache, fever, URI, sore throat, chest pain, palpitations, syncope , cough, shortness of breath, wheeze, dyspnea, nausea/vomiting/diarrhea, urinary retention, dysuria, hematuria, loss of control of bowel or bladder, numbness/tingling, saddle anesthesia, muscle paralysis/weakness, or rash. - ROS Systems Reviewed and Negative: Yes All other systems reviewed and negative - REPRODUCTIVE Reproductive: REPORTS: : Past Medical History - Social History Smoking Status: Unknown if Ever Smoked Family History: Reviewed & Not Pertinent, CAD - after age 40, DM, Hypertension, Thyroid Disfunction Pulmonary Medical History: Reports: Hx Asthma Endocrine Medical History: Reports: Hx Hypothyroidism Renal/ Medical History: Denies: Hx Peritoneal Dialysis Past Surgical History: Reports: Hx Abdominal Surgery - Gastric sleeve, Hx Section - 2013, Hx Oral Surgery - jaw - Immunizations Hx Diphtheria, Pertussis, Tetanus Vaccination: Yes Vertical Provider Document - CONSTITUTIONAL Agree With Documented VS: Yes Notes: PHYSICAL EXAMINATION: GENERAL: Well-appearing, well-nourished and in no acute distress. LUNGS: Breath sounds clear to auscultation bilaterally and equal. No wheezes rales or rhonchi. HEART: Regular rate and rhythm without murmurs, rubs, gallops. ABDOMEN: Soft, nondistended abdomen. No guarding, no rebound. No masses appreciated. Normal bowel sounds present. No CVA tenderness bilaterally. + mild tenderness rt lower pelvic (same as yesterday per patient). Musculoskeletal: FROM to passive/active. Strength 5+/5. Extremities: No cyanosis, clubbing, or edema b/l. Peripheral pulses 2+. Capillary refill less than 3 seconds. NEUROLOGICAL: Normal speech, normal gait. PSYCH: Normal mood, normal affect. SKIN: Warm, Dry, normal turgor, no rashes or lesions noted. - INFECTION CONTROL TRAVEL OUTSIDE OF THE [place] IN LAST 30 DAYS: No Course - Re-evaluation Re-evalutation: 01/25/18 16:56 Patient is an afebrile, well-hydrated, 27-year-old female who presents to the ED with a positive gonorrhea test. Vitals are acceptable without any significant tachycardia, tachypnea, or hypoxia. PE is otherwise unremarkable. No other labs or imaging warranted at this time based on H&P. Patient is nontoxic-appearing and is tolerating p.o. without any difficulties. Zithromax and Rocephin given today. Recheck with your PCM in 3-5 days. Go to the health department for further evaluation and testing. Return to the ED with any worsening/concerning symptoms otherwise as reviewed in discharge. Patient is in agreement. - Vital Signs Vital signs: Temp Pulse Resp BP Pulse Ox 99.0 F 99 20 119/84 98 01/25/18 16:41 01/25/18 16:41 01/25/18 16:41 01/25/18 16:41 01/25/18 16:41 Discharge - Discharge Clinical Impression: Pelvic pain, Gonorrhea Condition: Stable Disposition: HOME, SELF-CARE Instructions: Gonorrhea ([facility]) Additional Instructions: Push fluids (i.e. water, cranberry juice) Proper hygenic technique Keep the skin clean Safe sexual practices with condoms everytime Tylenol/ibuprofen as needed May use over the counter AZO for burning with urination Check in with the health department this week for further testing* Return immediately if symptoms worsen F/u with your PCM in 2-3 days for a recheck Return to the ED with any development of PONCE/fever, trouble with vision, eye redness, worsening pain, urethral discharge, urinary retention, blood in the urine, flank pain, abdominal pain, n/v, Chest Pain, shortness of breath, joint pains, trouble breathing, or any other worsening/concerning symptoms as needed otherwise. [facility] [NO LOCAL MD] - Follow up in 3-5 days
== END 2018-01-25 17:15 | disposition home or self-care (01) ==
LOC: ER 16:37
DX: A54.9 Gonococcal infection, unspecified (principal); R10.2 Pelvic and perineal pain; J45.909 Unspecified asthma, uncomplicated
CPT/HCPCS: 99283; 96372; J3490; J0696

== ENCOUNTER 2018-01-29 04:25 | Emergency (ER) | payer OTHER ==
[2018-01-29 05:53] LABS: APPEARANCE,URINE CLOUDY; BILIRUBIN,URINE NEGATIVE (NEGATIVE); COLOR,URINE AMBER; GLUCOSE, URINE NEGATIVE (NEGATIVE); KETONES,URINE NEGATIVE (NEGATIVE); LEUKOCYTE ESTERASE,URINE LARGE (NEGATIVE); NITRITE,URINE NEGATIVE (NEGATIVE); PROTEIN,URINE 30 mg/dL (NEGATIVE); URINE SPECIFIC GRAVITY 1.031
[2018-01-29] MEDS ORDERED: FLUCONAZOLE 100 MG TABLET PO ONE (06:42)
--- NOTE | 2018-01-29 06:42 | ER Document Report ---
ED GI/ - General Mode of Arrival: Ambulatory Information source: Patient TRAVEL OUTSIDE OF THE [place] IN LAST 30 DAYS: No - General Chief Complaint: Vaginal Pain Stated Complaint: VAGINAL PAIN Time Seen by Provider: 01/29/18 06:28 Notes: 27-year-old female presenting to the emergency department today with complaints of vaginal irritation, itching, and swelling. Patient was treated 4 days ago for gonorrhea. Patient states this itching, irritation, and swelling began after starting the antibiotic for the gonorrhea. (NEREYDA JORGE) - Related Data Allergies/Adverse Reactions: iodine [Iodine] Allergy (Verified 01/29/18 05:01) Penicillins Allergy (Verified 01/29/18 05:01) Past Medical History - General Information source: Patient Last Menstrual Period: 01/06 - Social History Smoking Status: Never Smoker Cigarette use (# per day): No Chew tobacco use (# tins/day): No Frequency of alcohol use: None Drug Abuse: None Lives with: Family Family History: Reviewed & Not Pertinent, CAD - after age 40, DM, Hypertension, Thyroid Disfunction Patient has suicidal ideation: No Patient has homicidal ideation: No Pulmonary Medical History: Reports: Hx Asthma Endocrine Medical History: Reports: Hx Hypothyroidism Renal/ Medical History: Reports: Hx Peritoneal Dialysis Past Surgical History: Reports: Hx Abdominal Surgery - Gastric sleeve, Hx Section - 2013, Hx Oral Surgery - jaw - Immunizations Hx Diphtheria, Pertussis, Tetanus Vaccination: Yes Review of Systems - Review of Systems Constitutional: No symptoms reported EENT: No symptoms reported Cardiovascular: No symptoms reported Respiratory: No symptoms reported Gastrointestinal: No symptoms reported Genitourinary: No symptoms reported Female Genitourinary: See HPI, Other - vaginal pain Musculoskeletal: No symptoms reported Skin: No symptoms reported Hematologic/Lymphatic: No symptoms reported Neurological/Psychological: No symptoms reported -: Yes All other systems reviewed and negative Physical Exam - Vital signs Vitals: Temp Pulse Resp BP Pulse Ox 98.6 F 77 16 120/75 97 01/29/18 04:30 01/29/18 04:30 01/29/18 04:30 01/29/18 04:30 01/29/18 04:30 - Notes Notes: Physical Exam: General: Alert, appears well. HEENT: Normocephalic. Atraumatic. PERRL. Extraocular movements intact. Oropharynx clear. Neck: Supple. Non-tender. Respiratory: No respiratory distress. Clear and equal breath sounds bilaterally. Cardiovascular: Regular rate and rhythm. Abdominal: Normal Inspection. Non-tender. No distension. Normal Bowel Sounds. Female Genitourinary: Exam performed with female nurse in attendance --no ulcerations or inguinal lymphadenopathy to suggest herpes. Labia are swollen bilaterally, no external lesions, inside of the labia are raw, irritated, and somewhat friable. Back: Non-tender. No deformity or step off. Extremities: Moves all four extremities. Upper extremities: Normal inspection. Normal ROM. Lower extremities: Normal inspection. No edema. Normal ROM. Neurological: Normal cognition. AAOx4. Normal speech. Psychological: Normal affect. Normal Mood. Skin: Warm. Dry. Normal color. (NEREYDA JORGE) - Vital Signs Vital signs: Temp Pulse Resp BP Pulse Ox 98.2 F 71 16 111/76 98 01/29/18 06:58 01/29/18 06:58 01/29/18 06:58 01/29/18 06:58 01/29/18 06:58 - Laboratory Laboratory results interpreted by me: 01/29/18 05:20 Urine Protein 30 H Urine Urobilinogen 2.0 H Ur Leukocyte Esterase LARGE H Discharge - Discharge Clinical Impression: Vaginal yeast infection Condition: Stable Disposition: HOME, SELF-CARE Additional Instructions: Vaginal Yeast Infection You have evidence of a yeast infection -- called "gretchen." A vaginal yeast infection often causes itching and discharge. While not dangerous, it can be very unpleasant. A yeast infection often follows the use of powerful antibiotics. It is more likely to occur in diabetics. The treatment now is usually a single pill of Diflucan, but also an antifungal cream or suppository may be used for a few days. You do not need to avoid sexual intercourse. Recurrences are common. You can make a recurrence less likely by wearing cotton underwear and avoiding tight clothing. For mild recurrences, you can try [id number] creams or suppositories that are made specifically for yeast. If the symptoms do not resolve, you should follow up for re-examination. Sometimes treatment of the sexual partner is necessary if infections are recurrent. Apply the Monistat 7 vaginal cream 1 applicatorful intravaginally once daily. Take the Diflucan tablet on Sunday if you are still having symptoms. Wear loose fitting clothing. Try to spend as much time with your vaginal area uncovered and a fan blowing to keep the area cool and dry. Follow-up with your doctor if not improving. RETURN TO THE EMERGENCY ROOM IF ANY NEW OR WORSENING SYMPTOMS. Prescriptions: Fluconazole [Diflucan] 150 mg PO ONCE PRN #1 tablet PRN Reason: Miconazole Nitrate [Monistat 7] 1 appful VG DAILY #1 tube Referrals: ELIZABETH ASHTON DO [Primary Care Provider] - Follow up as needed Scribe Attestation: 01/29/18 06:49 I personally performed the services described in the documentation, reviewed and edited the documentation which was dictated to the scribe in my presence, and it accurately records my words and actions. (JOCELYNE LEDBETTER) Scribe Documentation - Scribe Written by Sandor:: Sandor Waters, 01/29/2018 [id number] acting as scribe for :: Marge
[2018-01-29 07:03] VITALS: BP 111/76
== END 2018-01-29 07:00 | disposition home or self-care (01) ==
LOC: ER 04:25
DX: B37.3 Candidiasis of vulva and vagina (principal); R10.2 Pelvic and perineal pain; E03.9 Hypothyroidism, unspecified; Z88.0 Allergy status to penicillin
CPT/HCPCS: 81001; 81025; 99283

== ENCOUNTER 2018-06-28 20:56 | Emergency (ER) | payer OTHER ==
[2018-06-28 22:59] LABS: APPEARANCE,URINE SLIGHTLY-CLOUDY; BILIRUBIN,URINE NEGATIVE (NEGATIVE); COLOR,URINE YELLOW; GLUCOSE, URINE NEGATIVE (NEGATIVE); KETONES,URINE TRACE mg/dL (NEGATIVE); LEUKOCYTE ESTERASE,URINE SMALL (NEGATIVE); NITRITE,URINE NEGATIVE (NEGATIVE); PROTEIN,URINE 100 mg/dL (NEGATIVE); URINE SPECIFIC GRAVITY 1.035
--- NOTE | 2018-06-28 23:08 | ER Document Report ---
ED General - General Chief Complaint: Urinary Problem Stated Complaint: BURNING WITH URINATION Time Seen by Provider: 06/28/18 22:05 Notes: Patient is a 28-year-old female who presents to the emergency department with a chief complaint of dysuria. She says she also has lower abdominal pain. She has a history of PID, in which she was hospitalized for. She was diagnosed with gonorrhea during that hospital visit. The pain she currently has is similar to the pain that she had when she was admitted for PID. She also has complaints of vaginal bleeding. Her last menstrual cycle was June 13. She denies any nausea, vomiting, diarrhea. Her significant other was treated for gonorrhea shortly after her hospitalization. TRAVEL OUTSIDE OF THE [place] IN LAST 30 DAYS: No - Related Data Allergies/Adverse Reactions: iodine [Iodine] Allergy (Verified 01/29/18 05:01) Penicillins Allergy (Verified 01/29/18 05:01) Past Medical History - General Information source: Patient - Social History Smoking Status: Never Smoker Frequency of alcohol use: Occasional Drug Abuse: None Family History: Reviewed & Not Pertinent, CAD - after age 40, DM, Hypertension, Thyroid Disfunction Pulmonary Medical History: Reports: Hx Asthma Endocrine Medical History: Reports: Hx Hypothyroidism Renal/ Medical History: Reports: Hx Peritoneal Dialysis Past Surgical History: Reports: Hx Abdominal Surgery - Gastric sleeve, Hx Section - 2013, Hx Oral Surgery - jaw - Immunizations Hx Diphtheria, Pertussis, Tetanus Vaccination: Yes Review of Systems - Review of Systems -: Yes All other systems reviewed and negative Physical Exam - Vital signs Vitals: Temp Pulse Resp BP Pulse Ox 99 F 80 14 119/73 99 06/28/18 21:01 06/28/18 21:01 06/28/18 21:01 06/28/18 21:01 06/28/18 21:01 - Notes Notes: PHYSICAL EXAMINATION: GENERAL: Appears well, healthy, well-nourished, no acute distress. HEAD: Normocephalic, atraumatic. EYES: PERRL, conjunctiva normal, all extraocular movements intact, sclera nonicteric ENT: Moist mucous membranes. NECK: Supple, no noticeable swelling, redness, rash. Normal range of motion. LUNGS: Equal breath sounds bilaterally and clear to auscultation. No wheezes rales or rhonchi. CARDIOVASCULAR: S1-S2, regular rate, regular rhythm. Radial pulses 2+, normal. ABDOMEN: Normoactive bowel sounds. Soft, nontender, no guarding, no rebound tenderness, and no masses palpated. EXTREMITIES: Normal strength and range of motion, no pitting or edema. No cyanosis. NEUROLOGICAL: Moves all extremities upon command. Strength 5/5 in all extremities. PSYCH: Normal mood, normal affect. SKIN: Warm, dry. No rash, lesions, ulcerations noted. Normal skin turgor. OBGYN: Foul smelling vaginal discharge. Cervical motion tenderness noted. Course - Re-evaluation Re-evalutation: Due to patient having gonorrhea with pelvic inflammatory disease back in January, I am suspicious of her having this problem again. She is not tachycardic, ill and appearing, or with fever, therefore I do not suspect she is septic at this time. She will be sent for a transvaginal ultrasound and a pelvic exam will be done. Patient did have some cervical motion tenderness on pelvic exam, consistent with pelvic inflammatory disease. Will await wet mount for disposition. Her urinalysis shows blood, but she is complaining of vaginal bleeding. Patient's wet mount shows 3+ bacteria and 1+ WBCs. Her gonorrhea and chlamydia results are not back at this time. She will be treated with 1 gram of azithromycin and 250 mg of Rocephin. She also be sent home with Flagyl for treatment of bacterial vaginosis. Due to patient not being septic, she will be sent home. Verbal discharge instructions were given to the patient. She verbalized understanding. She is stable for discharge. - Vital Signs Vital signs: Temp Pulse Resp BP Pulse Ox 98.7 F 75 20 125/71 100 06/29/18 01:20 06/29/18 01:20 06/29/18 01:20 06/29/18 01:20 06/29/18 01:20 - Laboratory Laboratory results interpreted by me: 06/28/18 06/28/18 22:19 23:48 Urine Protein 100 H Urine Ketones TRACE H Urine Urobilinogen 4.0 H Ur Leukocyte Esterase SMALL H Chlamydia DNA (PCR) DETECTED H N.gonorrhoeae DNA (PCR) DETECTED H Discharge - Discharge Clinical Impression: Pelvic pain, Vaginal bleeding, Vaginal discharge Condition: Stable Disposition: HOME, SELF-CARE Additional Instructions: You have been seen in the emergency department for vaginal pain bleeding, pelvic pain, vaginal discharge. You do have pelvic inflammatory disease, but it is not bad enough for you to be admitted. Have been treated here in the emergency department Rocephin and azithromycin to treat any STDs. You have also been sent home with Flagyl, medication for bacterial vaginosis. If you develop a fever greater than 100.4 F or greater, have worsening abdominal pain , or have any other symptoms that are worrisome to you, please return to the emergency department. Prescriptions: Metronidazole [Flagyl 500 mg Tablet] 500 mg PO Q6H #28 tablet Referrals: ELIZABETH ASHTON DO [Primary Care Provider] - Follow up as needed
[2018-06-29 00:06] LABS: BACTERIA (WET MOUNT) 3+ BACTERIA SEEN; EPITHELIALS (WET MOUNT) 3+ EPITHELIALS SEEN; RBCS (WET MOUNT) 1+ RBCS SEEN; T.VAGINALIS (WET MOUNT) NO TRICHOMONAS SEEN; WBCS (WET MOUNT) 1+ WBCS SEEN; YEAST (WET MOUNT) NO YEAST SEEN
[2018-06-29] MEDS ORDERED: AZITHROMYCIN 250 MG TABLET PO ONE (00:23)
[2018-06-29] MEDS ORDERED: CEFTRIAXONE INJ 250 MG VIAL IM ONE (00:23)
[2018-06-29] MEDS ORDERED: LIDOCAINE 1% INJ-PF (10 MG/ML) 30 ML SDV INJ ONE (00:23)
--- NOTE | 2018-06-29 00:48 | RADIOLOGY REPORT (SQ) ---
CLINICAL DATA: 28-year-old female with pelvic pain. TECHNICAL DATA: Transvaginal imaging and Doppler imaging of the pelvis was performed. FINDINGS: Comparison is from 04/22/2017. The uterus is normal in size, shape and echogenicity and measures 9.3 x 4.8 x 4.7 cm. The endometrial complex measures 0.3 cm in thickness. There is no endometrial fluid. The cervix measures 2.9 cm in length. The right ovary measures 3.2 x 1.9 x 1.3 cm. The right ovary contains normal follicles. Doppler imaging demonstrates normal pulsed and color Doppler flow. The left ovary measures 3.6 x 2.2 x 2.7 cm. The left ovary contains a dominant cyst measuring 2.4 x 2.1 x 1.9 cm. There are several internal daughter cysts which measure approximately 4.0 and 5.0 mm in diameter. Doppler imaging demonstrates normal pulsed and color Doppler flow. There is no free fluid in the pelvis. IMPRESSION: 1. Grossly normal sonographic evaluation of the uterus. 2. Dominant cyst arising from the left ovary with a maximum dimension of 2.4 cm containing small daughter cysts or physiologic follicles. No follow-up imaging is recommended.
[2018-06-29 01:30] LABS: CHLAM PCR DETECTED (NOT DETECT); GON PCR DETECTED (NOT DETECT)
[2018-06-29 02:00] VITALS: BP 125/71
== END 2018-06-29 01:22 | disposition home or self-care (01) ==
LOC: ER 20:56
DX: N89.8 Other specified noninflammatory disorders of vagina (principal); N93.8 Other specified abnormal uterine and vaginal bleeding; R10.2 Pelvic and perineal pain; R30.0 Dysuria; Z88.0 Allergy status to penicillin
CPT/HCPCS: 99284; 96372; 87086; 87210; 81025; 81001; 87491; 87591; 76830; 93976; J3490; J0696

== ENCOUNTER 2018-08-29 14:25 | Emergency (ER) | payer OTHER ==
--- NOTE | 2018-08-29 14:53 | ER Document Report ---
ED Medical Screen (RME) - General Chief Complaint: Vaginal Discharge Stated Complaint: VAGINAL PAIN/DISCHARGE Time Seen by Provider: 08/29/18 14:52 Primary Care Provider: ELIZABETH ASHTON DO [Primary Care Provider] - Follow up as needed Notes: 28 years old female presents today with vaginal discharge swelling over the labia for the last few days. TRAVEL OUTSIDE OF THE [place] IN LAST 30 DAYS: No - Related Data Allergies/Adverse Reactions: iodine [Iodine] Allergy (Verified 08/29/18 14:25) Penicillins Allergy (Verified 08/29/18 14:25) Past Medical History Pulmonary Medical History: Reports: Hx Asthma Endocrine Medical History: Reports: Hx Hypothyroidism Renal/ Medical History: Reports: Hx Peritoneal Dialysis Past Surgical History: Reports: Hx Abdominal Surgery - Gastric sleeve, Hx Section - 2013, Hx Oral Surgery - jaw - Immunizations Hx Diphtheria, Pertussis, Tetanus Vaccination: Yes Physical Exam - Vital signs Vitals: Temp Pulse Resp BP Pulse Ox 98.7 F 87 18 115/71 100 08/29/18 14:30 08/29/18 14:30 08/29/18 14:30 08/29/18 14:30 08/29/18 14:30 Course - Vital Signs Vital signs: Temp Pulse Resp BP Pulse Ox 98.7 F 87 18 115/71 100 08/29/18 14:30 08/29/18 14:30 08/29/18 14:30 08/29/18 14:30 08/29/18 14:30 Doctor's Discharge - Discharge Referrals: ELIZABETH ASHTON DO [Primary Care Provider] - Follow up as needed
[2018-08-29 15:26] LABS: ABSOLUTE EOSINOPHILS # (AUTO) 0.3 10^3/uL (0.0-0.6); ABSOLUTE LYMPHOCYTES (AUTO) 1.7 10^3/uL (0.5-4.7); ABSOLUTE MONOCYTES (AUTO) 0.4 10^3/uL (0.1-1.4); ABSOLUTE NEUT (AUTO) 3.6 10^3/uL (1.7-8.2); BASOPHILS % (AUTO) 0.7 % (0-2); EOSINOPHILS % (AUTO) 5.2 % (0-6); HEMATOCRIT 33.9 % (36.0-47.0); HEMOGLOBIN 11.7 g/dL (12.0-15.5); MEAN CORPUSCULAR HEMOGLOBIN 29.3 pg (27.0-33.4); MEAN CORPUSCULAR HGB CONC 34.6 g/dL (32.0-36.0); MEAN CORPUSCULAR VOLUME 85 fl (80-97); PLATELET COUNT 252 10^3/uL (150-450); RED CELL DISTRIBUTION WIDTH 13.6 % (11.5-14.0); SEGMENTED NEUTROPHILS % (AUTO) 60.1 % (42-78); TOTAL CELLS COUNTED % (AUTO) 100 %
[2018-08-29 16:24] LABS: BACTERIA (WET MOUNT) 4+ BACTERIA SEEN; EPITHELIALS (WET MOUNT) 3+ EPITHELIALS SEEN; RBCS (WET MOUNT) 2+ RBCS SEEN; T.VAGINALIS (WET MOUNT) NO TRICHOMONAS SEEN; WBCS (WET MOUNT) 3+ WBCS SEEN; YEAST (WET MOUNT) NO YEAST SEEN
[2018-08-29 16:42] LABS: APPEARANCE,URINE SLIGHTLY-CLOUDY; BILIRUBIN,URINE NEGATIVE (NEGATIVE); COLOR,URINE YELLOW; GLUCOSE, URINE NEGATIVE (NEGATIVE); KETONES,URINE NEGATIVE (NEGATIVE); LEUKOCYTE ESTERASE,URINE TRACE (NEGATIVE); NITRITE,URINE NEGATIVE (NEGATIVE); PROTEIN,URINE NEGATIVE (NEGATIVE); URINE SPECIFIC GRAVITY 1.029
[2018-08-29] MEDS ORDERED: LIDOCAINE 1% INJ-PF (10 MG/ML) 30 ML SDV IM ONE (16:43)
[2018-08-29] MEDS ORDERED: CEFTRIAXONE INJ 250 MG VIAL IM ONE (16:43)
[2018-08-29] MEDS ORDERED: AZITHROMYCIN 250 MG TABLET PO ONE (16:43)
[2018-08-29] MEDS ORDERED: METRONIDAZOLE 500 MG TABLET PO ONE (16:43)
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
[2018-08-29 16:54] VITALS: BP 104/77
[2018-08-29 18:01] LABS: CHLAM PCR NOT DETECTED (NOT DETECT); GON PCR NOT DETECTED (NOT DETECT)
== END 2018-08-29 16:50 | disposition home or self-care (01) ==
LOC: ER 14:25
DX: N73.9 Female pelvic inflammatory disease, unspecified (principal); R10.2 Pelvic and perineal pain; J45.909 Unspecified asthma, uncomplicated; Z98.84 Bariatric surgery status; Z88.0 Allergy status to penicillin
CPT/HCPCS: 36415; 81001; 81025; 85025; 87210; 87491; 87591; 99283

== ENCOUNTER 2018-10-18 12:50 | Emergency (ER) | payer SELFPAY ==
[2018-10-18 12:57] VITALS: BP 127/73
[2018-10-18] MEDS ORDERED: ONDANSETRON 4 MG TAB.RAPDIS ONE (13:16)
[2018-10-18] MEDS ORDERED: ONDANSETRON 4 MG TAB.RAPDIS PO ONE (13:16)
[2018-10-18] MEDS ORDERED: ONDANSETRON HCL INJ/PF 4 MG/2 ML SDV IV ONE (13:16)
[2018-10-18] MEDS ORDERED: NORMAL SALINE 1000 ML 1,000 ML IV ONE (13:17)
--- NOTE | 2018-10-18 13:18 | ER Document Report ---
ED Medical Screen (RME) - General Chief Complaint: Abdominal Pain Stated Complaint: DIZZY, HEADACHE, NAUSEA Time Seen by Provider: 10/18/18 13:09 Mode of Arrival: Ambulatory Information source: Patient Notes: Patient is an otherwise healthy 28-year-old female who presents the emergency department with right upper quadrant abdominal pain with nausea, vomiting and diarrhea. Patient reports all symptoms started this morning. Patient does report that her children had a gastroenteritis recently. Patient denies any fevers. Patient actively vomiting in triage. Exam: Tenderness to palpation to the right upper quadrant. I have greeted and performed a rapid initial assessment of this patient. A comprehensive ED assessment and evaluation of the patient, analysis of test results and completion of the medical decision making process will be conducted by additional ED providers. Dictation of this chart was performed using voice recognition software; therefore, there may be some unintended grammatical errors. TRAVEL OUTSIDE OF THE [place] IN LAST 30 DAYS: No - Related Data Allergies/Adverse Reactions: iodine [Iodine] Allergy (Verified 08/29/18 14:25) Penicillins Allergy (Verified 08/29/18 14:25) Past Medical History - Social History Chew tobacco use (# tins/day): No Frequency of alcohol use: None Drug Abuse: None Pulmonary Medical History: Reports: Hx Asthma Endocrine Medical History: Reports: Hx Hypothyroidism Renal/ Medical History: Denies: Hx Peritoneal Dialysis Past Surgical History: Reports: Hx Abdominal Surgery - Gastric sleeve, Hx Section - 2013, Hx Oral Surgery - jaw - Immunizations Hx Diphtheria, Pertussis, Tetanus Vaccination: Yes Physical Exam - Vital signs Vitals: Temp Pulse Resp BP Pulse Ox 98.6 F 95 15 127/73 H 98 10/18/18 12:56 10/18/18 12:56 10/18/18 12:56 10/18/18 12:56 10/18/18 12:56 Course - Vital Signs Vital signs: Temp Pulse Resp BP Pulse Ox 98.6 F 95 15 127/73 H 98 10/18/18 12:56 10/18/18 12:56 10/18/18 12:56 10/18/18 12:56 10/18/18 12:56
[2018-10-18 13:33] LABS: ABSOLUTE EOSINOPHILS # (AUTO) 0.3 10^3/uL (0.0-0.6); ABSOLUTE LYMPHOCYTES (AUTO) 0.6 10^3/uL (0.5-4.7); ABSOLUTE MONOCYTES (AUTO) 0.2 10^3/uL (0.1-1.4); ABSOLUTE NEUT (AUTO) 6.2 10^3/uL (1.7-8.2); BASOPHILS % (AUTO) 0.3 % (0-2); EOSINOPHILS % (AUTO) 3.5 % (0-6); HEMATOCRIT 39.6 % (36.0-47.0); HEMOGLOBIN 13.4 g/dL (12.0-15.5); LYMPHOCYTES % (AUTO) 7.6 % (13-45); MEAN CORPUSCULAR HEMOGLOBIN 29.5 pg (27.0-33.4); MEAN CORPUSCULAR HGB CONC 33.9 g/dL (32.0-36.0); MEAN CORPUSCULAR VOLUME 87 fl (80-97); MONOCYTES % (AUTO) 3.3 % (3-13); PLATELET COUNT 246 10^3/uL (150-450); RED BLOOD COUNT 4.54 10^6/uL (3.72-5.28); RED CELL DISTRIBUTION WIDTH 14.1 % (11.5-14.0); SEGMENTED NEUTROPHILS % (AUTO) 85.3 % (42-78); TOTAL CELLS COUNTED % (AUTO) 100 %; WHITE BLOOD COUNT 7.2 10^3/uL (4.0-10.5)
[2018-10-18 13:54] LABS: ALANINE AMINOTRANSFERASE 13 U/L (9-52); ALBUMIN 4.3 g/dL (3.5-5.0); ALKALINE PHOSPHATASE 72 U/L (38-126); ANION GAP 9 (5-19); ASPARTATE AMINO TRANSFERASE 24 U/L (14-36); BILIRUBIN,DIRECT 0.3 mg/dL (0.0-0.4); BILIRUBIN,TOTAL 0.5 mg/dL (0.2-1.3); BLOOD UREA NITROGEN 9 mg/dL (7-20); CALCIUM 10.1 mg/dL (8.4-10.2); CARBON DIOXIDE 25 mmol/L (22-30); CHLORIDE 108 mmol/L (98-107); GLUCOSE 90 mg/dL (75-110); LIPASE 68.1 U/L (23-300); POTASSIUM 3.8 mmol/L (3.6-5.0); SODIUM 141.8 mmol/L (137-145); TOTAL PROTEIN 7.7 g/dL (6.3-8.2)
[2018-10-18] MEDS ORDERED: DIPHENHYDRAMINE HCL 50 MG/ML VIAL IV ONE (14:16)
[2018-10-18] MEDS ORDERED: METOCLOPRAMIDE HCL INJ/PF 10 MG/2 ML SDV IV ONE (14:16)
[2018-10-18] MEDS ORDERED: KETOROLAC TROMETHAMINE INJ/PF 30 MG/1 ML SDV IV ONE (14:17)
[2018-10-18 14:18] LABS: APPEARANCE,URINE CLEAR; BILIRUBIN,URINE NEGATIVE (NEGATIVE); COLOR,URINE YELLOW; GLUCOSE, URINE NEGATIVE (NEGATIVE); KETONES,URINE NEGATIVE (NEGATIVE); LEUKOCYTE ESTERASE,URINE NEGATIVE (NEGATIVE); NITRITE,URINE NEGATIVE (NEGATIVE); PROTEIN,URINE NEGATIVE (NEGATIVE); URINE SPECIFIC GRAVITY 1.026; UROBILINOGEN,URINE NEGATIVE mg/dL (<2.0)
--- NOTE | 2018-10-18 14:25 | ER Document Report ---
ED General - General Chief Complaint: Abdominal Pain Stated Complaint: DIZZY, HEADACHE, NAUSEA Time Seen by Provider: 10/18/18 13:09 Mode of Arrival: Ambulatory Information source: Patient TRAVEL OUTSIDE OF THE [place] IN LAST 30 DAYS: No - HPI Patient complains to provider of: Headache, dizziness, nausea, loose stool, stomach pain Onset: This morning Onset/Duration: Sudden Quality of pain: Achy Severity: Severe Pain Level: 4 Associated symptoms: denies: Chills, Fever Exacerbated by: Denies Relieved by: Denies Similar symptoms previously: No Recently seen / treated by doctor: No Notes: 28-year-old female with history of gastric sleeve surgery coming in today with generalized stomach discomfort, nausea, vomiting, loose stools, generalized malaise and headache behind her right eye. No reported fevers or shaking chills. States the medications given through her IV have not resolved the nausea and vomiting - Related Data Allergies/Adverse Reactions: iodine [Iodine] Allergy (Verified 08/29/18 14:25) Penicillins Allergy (Verified 08/29/18 14:25) Past Medical History - General Information source: Patient - Social History Smoking Status: Never Smoker Chew tobacco use (# tins/day): No Frequency of alcohol use: None Drug Abuse: None Family History: Reviewed & Not Pertinent, CAD - after age 40, DM, Hypertension, Thyroid Disfunction Patient has suicidal ideation: No Patient has homicidal ideation: No Pulmonary Medical History: Reports: Hx Asthma Endocrine Medical History: Reports: Hx Hypothyroidism Renal/ Medical History: Denies: Hx Peritoneal Dialysis Past Surgical History: Reports: Hx Abdominal Surgery - Gastric sleeve, Hx Section - 2013, Hx Oral Surgery - jaw - Immunizations Hx Diphtheria, Pertussis, Tetanus Vaccination: Yes Review of Systems - Review of Systems Notes: Constitutional: No fevers. No chills. EENT: No eye redness. No eye pain. No ear pain. No sore throat. Cardiovascular: No chest pain. No palpitations. Respiratory: No cough. No shortness of breath. No respiratory distress. Gastrointestinal: + Abdominal pain, nausea, vomiting, loose stools Genitourinary: Atraumatic. No lesions. No pain. No discharge. Musculoskeletal: Atraumatic. No swelling. No deformities. Skin: No rash or lesions. Lymphatic: No swollen lymph nodes. Neurologic: +headache. No syncope. Psychiatric: No suicidal or homicidal ideation. Physical Exam - Vital signs Vitals: Temp Pulse Resp BP Pulse Ox 98.6 F 95 15 127/73 H 98 10/18/18 12:56 10/18/18 12:56 10/18/18 12:56 10/18/18 12:56 10/18/18 12:56 - Notes Notes: General: Well-developed, well-nourished. In no acute distress. Non-toxic appearing. Appears malaised Cardiac: Well-perfused. Regular rate and rhythm. No murmurs, rubs, or gallops. Pulmonary: No respiratory distress. No cyanosis. Bilateral lung fiels are clear to auscultation. Abdominal: Non-distended. Non-rigid. Bowels sounds are present in all four quadrants. No guarding or rebound. No tenderness to palpation HEENT: Head is atraumatic. Conjunctivae not reddened. No tearing. PERRL. EOMI. Orbits atraumatic. No periorbital swelling or erythema. Oropharynx is without erythema, swelling, or exudates. Neck: Supple. No adenopathy. No meningismus. Dermatologic: Warm with good turgor. No rash. Atraumatic. Chest: Atraumatic. No chest wall tenderness to palpation. Musculoskeletal: Moves all extremities well. No range of motion deficits. no muscular or joint tenderness. No paraspinal muscle tenderness. no midline spinal tenderness or step-off. Genitourinary: Examination deferred Neurologic: No gross neurologic deficits. Psychiatric: Normal mood. Course - Re-evaluation Re-evalutation: 10/18/18 14:25 Patient's presentation sounds overwhelmingly viral we will get the usual lab work. Apparently Elvianirav was not really doing the trick for her nausea. She is got the retro-orbital headache on the right which I am willing to try to treat with a little dose of Toradol and Benadryl and Reglan. Hoping the Reglan will help with the nausea better than the Zofran did. 10/18/18 15:27 Patient is feeling better since the headache cocktail. Her labs are back in the all look good. She is currently doing a oral liquid challenge. As long as she is tolerating fluids we will discharge her home diagnosis viral syndrome - Vital Signs Vital signs: Temp Pulse Resp BP Pulse Ox 98.6 F 95 15 127/73 H 98 10/18/18 12:56 10/18/18 12:56 10/18/18 12:56 10/18/18 12:56 10/18/18 12:56 - Laboratory Result Diagrams: 10/18/18 13:20 10/18/18 13:20 Laboratory results interpreted by me: 10/18/18 10/18/18 13:20 13:20 RDW 14.1 H Seg Neutrophils % 85.3 H Lymphocytes % 7.6 L Chloride 108 H Discharge - Discharge Clinical Impression: Viral syndrome Nausea and vomiting Qualifiers: Vomiting type: unspecified Vomiting Intractability: non-intractable Qualified Code(s): R11.2 - Nausea with vomiting, unspecified Condition: Good Disposition: HOME, SELF-CARE Instructions: Antinausea Medication ([facility]), Viral Syndrome ([facility]), Vomiting ([facility]), Intravenous (IV) Fluids ([facility]) Additional Instructions: Take medication as needed for nausea and headache. Body aches can be treated with Tylenol or ibuprofen or Aleve. Return to the ED if symptoms are getting worse. Otherwise follow-up as an outpatient with your doctor in the clinic in the next 24-48 hours. Prescriptions: Metoclopramide HCl [Reglan 10 mg Tablet] 10 mg PO Q6HP PRN #20 tablet PRN Reason: Print Language: Romansh
== END 2018-10-18 15:43 | disposition home or self-care (01) ==
LOC: ER 12:50
DX: B34.9 Viral infection, unspecified (principal); R11.2 Nausea with vomiting, unspecified; R51 Headache; R42 Dizziness and giddiness; R19.4 Change in bowel habit; R10.9 Unspecified abdominal pain; R53.81 Other malaise; Z98.84 Bariatric surgery status; Z88.0 Allergy status to penicillin; J45.909 Unspecified asthma, uncomplicated
CPT/HCPCS: 99284; 96361; 96374; 96375; 36415; 83690; 84703; 85025; 80053; 81001; J1200; S0119; J1885; J2765; J2405; J7030

== ENCOUNTER 2018-10-25 08:08 | Emergency (ER) | payer SELFPAY ==
--- NOTE | 2018-10-25 08:49 | ER Document Report ---
ED GI/ - General Chief Complaint: Urinary Problem Stated Complaint: URINARY SYMPTOMS Time Seen by Provider: 10/25/18 08:39 Notes: 28-year-old female patient emergency department chief complaint of dysuria and intermittent fevers at home. Pain radiating to bilateral flanks. Patient denies any change in sexual partners. Denies any abnormal vaginal discharge or odors. Patient states that she feels like she has a UTI. It cee when she u rinates but was a little more concerned because having some cramping that radiates around to the bilateral flank area. Denies any other symptoms at this time. TRAVEL OUTSIDE OF THE [place] IN LAST 30 DAYS: No - HPI Patient complains to provider of: Abdominal pain, Dysuria, Flank pain, Vaginal bleeding Timing/Duration: Gradual Quality of pain: Achy, Burning Severity at maximum: Moderate Severity in ED: Moderate Pain Level: 2 Location: Low back, Suprapubic - Related Data Allergies/Adverse Reactions: iodine [Iodine] Allergy (Verified 10/25/18 08:11) Penicillins Allergy (Verified 10/25/18 08:11) Past Medical History - General Information source: Patient - Social History Smoking Status: Smoker,Current Status Unk Lives with: Family Family History: Reviewed & Not Pertinent, CAD - after age 40, DM, Hypertension, Thyroid Disfunction Pulmonary Medical History: Reports: Hx Asthma Endocrine Medical History: Reports: Hx Hypothyroidism Renal/ Medical History: Denies: Hx Peritoneal Dialysis Past Surgical History: Reports: Hx Abdominal Surgery - Gastric sleeve, Hx Section - 2013, Hx Oral Surgery - jaw - Immunizations Hx Diphtheria, Pertussis, Tetanus Vaccination: Yes Review of Systems - Review of Systems Notes: Constitutional: denies: Chills, Diaphoresis, Fever, Malaise, Weakness EENT: denies: Eye discharge, Blurred vision, Tearing, Double vision, Nose conges tion, Nose discharge, Throat swelling, Mouth pain Cardiovascular: denies: Palpitations, Heart racing, Orthopnea, Dyspnea, Chest pain Respiratory: denies: Cough, Hurts to breathe, Wheezing, Shortness of breath Gastrointestinal: denies: Abdominal pain, Diarrhea, Nausea, Vomiting, Black stools, bright red blood in stool Genitourinary: + Burning, +Dysuria, -Discharge, +Frequency, +Flank pain, +Hem aturia Musculoskeletal: denies: Joint pain, Joint swelling, Muscle pain, Muscle stiffness, back pain Hematologic/Lymphatic: denies: Anemia, Easy bleeding, Easy bruising, Blood clots Neurological/Psychological: denies: Confusion, Dementia, Depression, Loss of consciousness Skin: No lesions, no masses, no skin breakdown, no abscesses Physical Exam - Vital signs Vitals: Temp Pulse Resp BP Pulse Ox 97.9 F 88 16 108/68 98 10/25/18 08:12 10/25/18 08:12 10/25/18 08:12 10/25/18 08:12 10/25/18 08:12 Interpretation: Normal - General General appearance: Appears well, Alert - HEENT Head: Normocephalic, Atraumatic Eyes: Normal Pupils: PERRL - Respiratory Respiratory status: No respiratory distress Chest status: Nontender Breath sounds: Normal Chest palpation: Normal - Cardiovascular Rhythm: Regular Heart sounds: Normal auscultation Murmur: No - Abdominal Inspection: Normal Distension: No distension Bowel sounds: Normal Tenderness: Nontender Organomegaly: No organomegaly - Back Back: Normal, Nontender - Extremities General upper extremity: Normal inspection, Nontender, Normal color, Normal ROM, Normal temperature General lower extremity: Normal inspection, Nontender, Normal color, Normal ROM, Normal temperature, Normal weight bearing. No: Anabella's sign - Neurological Neuro grossly intact: Yes Cognition: Normal Orientation: AAOx4 Jah Coma Scale Eye Opening: Spontaneous Jah Coma Scale Verbal: Oriented [place] Coma Scale Motor: Obeys Commands Jah Coma Scale Total: 15 Speech: Normal Motor strength normal: LUE, RUE, LLE, RLE Sensory: Normal - Psychological Associated symptoms: Normal affect, Normal mood - Skin Skin Temperature: Warm Skin Moisture: Dry Skin Color: Normal Course - Re-evaluation Re-evalutation: 10/25/18 09:28 Laboratory 10/25/18 10/25/18 08:15 09:09 Urine Color ORANGE Urine Appearance SLIGHTLY-CLOUDY Urine pH 6.0 Ur Specific [place] 1.025 Urine Protein 30 H Urine Glucose (UA) NEGATIVE Urine Ketones NEGATIVE Urine Blood MODERATE H Urine Nitrite POSITIVE H Urine Bilirubin NEGATIVE Urine Urobilinogen 4.0 H Ur Leukocyte Esterase TRACE H Urine WBC (Auto) 50 Urine RBC (Auto) 17 Urine Bacteria (Auto) 2+ Squamous Epi Cells Auto 1 Urine Mucus (Auto) MOD Urine Ascorbic Acid NEGATIVE Urine HCG, Qual NEGATIVE Epi Cells (Wet Prep) 3+ EPITHELIALS SEEN Bacteria (Wet Prep) 3+ BACTERIA SEEN Trichomonas (Wet Prep) NO TRICHOMONAS SEEN Vaginal WBC RARE WBCS SEEN Vaginal RBC 3+ RBCS SEEN Vaginal Yeast NO YEAST SEEN - Vital Signs Vital signs: Temp Pulse Resp BP Pulse Ox 97.9 F 88 16 108/68 98 10/25/18 08:12 10/25/18 08:12 10/25/18 08:12 10/25/18 08:12 10/25/18 08:12 - Laboratory Laboratory results interpreted by me: 10/25/18 08:15 Urine Protein 30 H Urine Blood MODERATE H Urine Nitrite POSITIVE H Urine Urobilinogen 4.0 H Ur Leukocyte Esterase TRACE H Discharge - Discharge Clinical Impression: Urinary tract infection Qualifiers: Urinary tract infection type: acute cystitis Hematuria presence: with hematuria Qualified Code(s): N30.01 - Acute cystitis with hematuria Condition: Good Disposition: HOME, SELF-CARE Instructions: Trimethoprim-Sulfa ([facility]), Urinary Anesthetic Agent ([facility]), Urinary Tract Infection ([facility]) Prescriptions: Ibuprofen [Motrin 800 mg Tablet] 800 mg PO Q8H PRN 5 Days #20 tab PRN Reason: For Pain Scale 3-4 Phenazopyridine HCl [Pyridium 100 Mg Tablet] 100 mg PO TID 3 Days #9 tablet Sulfamethoxazole/Trimethoprim [Bactrim Ds Tablet] 1 each PO BID 5 Days #10 tablet Forms: Return to Work
[2018-10-25 08:51] LABS: APPEARANCE,URINE SLIGHTLY-CLOUDY; BILIRUBIN,URINE NEGATIVE (NEGATIVE); GLUCOSE, URINE NEGATIVE (NEGATIVE); KETONES,URINE NEGATIVE (NEGATIVE); LEUKOCYTE ESTERASE,URINE TRACE (NEGATIVE); NITRITE,URINE POSITIVE (NEGATIVE); PROTEIN,URINE 30 mg/dL (NEGATIVE); URINE SPECIFIC GRAVITY 1.025
[2018-10-25 08:53] LABS: COLOR,URINE ORANGE
[2018-10-25] MEDS ORDERED: SULFAMETHOXAZOLE/TRIMETHOPRIM 800-160 MG TABLET PO ONE (09:19)
[2018-10-25] MEDS ORDERED: IBUPROFEN 800 MG TABLET PO ONE (09:20)
[2018-10-25] MEDS ORDERED: PHENAZOPYRIDINE HCL 100 MG TABLET PO ONE (09:20)
[2018-10-25 09:22] LABS: BACTERIA (WET MOUNT) 3+ BACTERIA SEEN; EPITHELIALS (WET MOUNT) 3+ EPITHELIALS SEEN; RBCS (WET MOUNT) 3+ RBCS SEEN; T.VAGINALIS (WET MOUNT) NO TRICHOMONAS SEEN; WBCS (WET MOUNT) RARE WBCS SEEN; YEAST (WET MOUNT) NO YEAST SEEN
[2018-10-25 09:40] VITALS: BP 103/67
[2018-10-25 10:17] LABS: CHLAM PCR NOT DETECTED (NOT DETECT); GON PCR NOT DETECTED (NOT DETECT)
== END 2018-10-25 10:06 | disposition home or self-care (01) ==
LOC: ER 08:08
DX: N30.01 Acute cystitis with hematuria (principal); R50.9 Fever, unspecified; R10.9 Unspecified abdominal pain; Z88.0 Allergy status to penicillin
CPT/HCPCS: 99283; 87086; 87210; 81025; 87088; 81001; 87186; 87491; 87591; J3490

== ENCOUNTER 2018-12-28 14:08 | Emergency (ER) | payer SELFPAY ==
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
[2018-12-28 15:33] LABS: ABSOLUTE EOSINOPHILS # (AUTO) 0.1 10^3/uL (0.0-0.6); ABSOLUTE LYMPHOCYTES (AUTO) 1.1 10^3/uL (0.5-4.7); ABSOLUTE MONOCYTES (AUTO) 0.3 10^3/uL (0.1-1.4); ABSOLUTE NEUT (AUTO) 4.2 10^3/uL (1.7-8.2); BASOPHILS % (AUTO) 0.6 % (0-2); EOSINOPHILS % (AUTO) 1.8 % (0-6); HEMATOCRIT 38.6 % (36.0-47.0); LYMPHOCYTES % (AUTO) 19.8 % (13-45); MEAN CORPUSCULAR HEMOGLOBIN 28.7 pg (27.0-33.4); MEAN CORPUSCULAR HGB CONC 33.7 g/dL (32.0-36.0); MEAN CORPUSCULAR VOLUME 85 fl (80-97); MONOCYTES % (AUTO) 5.1 % (3-13); PLATELET COUNT 280 10^3/uL (150-450); RED BLOOD COUNT 4.53 10^6/uL (3.72-5.28); RED CELL DISTRIBUTION WIDTH 13.4 % (11.5-14.0); SEGMENTED NEUTROPHILS % (AUTO) 72.7 % (42-78); TOTAL CELLS COUNTED % (AUTO) 100 %; WHITE BLOOD COUNT 5.8 10^3/uL (4.0-10.5)
[2018-12-28 15:38] LABS: ACETAMINOPHEN < 10 ug/mL (10-30); ALCOHOL < 10 mg/dL (NONE DETECTED); APPEARANCE,URINE SLIGHTLY-CLOUDY; BILIRUBIN,URINE NEGATIVE (NEGATIVE); COLOR,URINE YELLOW; GLUCOSE, URINE NEGATIVE (NEGATIVE); KETONES,URINE NEGATIVE (NEGATIVE); LEUKOCYTE ESTERASE,URINE NEGATIVE (NEGATIVE); NITRITE,URINE NEGATIVE (NEGATIVE); PROTEIN,URINE NEGATIVE (NEGATIVE); SALICYLATE < 1.0 mg/dL (2.0-20.0); URINE SPECIFIC GRAVITY 1.028; UROBILINOGEN,URINE NEGATIVE mg/dL (<2.0)
[2018-12-28 16:03] LABS: URINE AMPHETAMINES SCREEN NEGATIVE; URINE BARBITURATES SCREEN NEGATIVE; URINE BENZODIAZEPINES SCREEN NEGATIVE; URINE COCAINE SCREEN NEGATIVE; URINE MARIJUANA (THC) SCREEN NEGATIVE; URINE METHADONE SCREEN NEGATIVE; URINE PHENCYCLIDINE SCREEN NEGATIVE
[2018-12-28 16:17] LABS: ALANINE AMINOTRANSFERASE 27 U/L (9-52); ALBUMIN 4.7 g/dL (3.5-5.0); ALKALINE PHOSPHATASE 89 U/L (38-126); ANION GAP 10 (5-19); ASPARTATE AMINO TRANSFERASE 34 U/L (14-36); BILIRUBIN,DIRECT 0.2 mg/dL (0.0-0.4); BILIRUBIN,TOTAL 0.3 mg/dL (0.2-1.3); BLOOD UREA NITROGEN 11 mg/dL (7-20); CALCIUM 10.1 mg/dL (8.4-10.2); CARBON DIOXIDE 25 mmol/L (22-30); CHLORIDE 105 mmol/L (98-107); GLUCOSE 93 mg/dL (75-110); POTASSIUM 4.4 mmol/L (3.6-5.0); SODIUM 140.3 mmol/L (137-145); TOTAL PROTEIN 8.2 g/dL (6.3-8.2)
--- NOTE | 2018-12-28 16:26 | PSYCHOLOGICAL NOTE ---
Psych Note - Psych Note Date seen by psych provider: 12/28/18 Time seen by psych provider: 15:50 - 1600 Psych Note: Reason for Consult: Suicidal ideation Patient presents to the ED with complaint of SI without plan. Patient reports she has hx of Bipolar Disorder and Depression and stopped taking her medications in October d/t loss of insurance. medication recommendations per [facility]'s contracted psychitrist Dr Alona NEWELL are as follows Topamax 25mg every evening for one week then increase to 50mg Bipolar per history provided by patient Impression/Plan: patient is cleared from acute psychiatric services. Patient reports increase in home stress. Patient lost insurance after divorce so have been off medication since October or November. Patient would like assistance to get back on medication. medication recommendations have been provided. Patient is recommended for therapy also and has been provided the local reason list of area providers including mobile crisis contact information. Dr. Wells was consulted on the care and management of this patient; attending physician is in agreement with recommendations and disposition.
[2018-12-28 17:23] VITALS: BP 119/67
== END 2018-12-28 17:24 | disposition home or self-care (01) ==
LOC: ER 14:08
DX: F31.9 Bipolar disorder, unspecified (principal); Z79.899 Other long term (current) drug therapy; F17.200 Nicotine dependence, unspecified, uncomplicated; J45.909 Unspecified asthma, uncomplicated
CPT/HCPCS: 36415; 80053; 80307; 81001; 81025; 85025; 99284

== ENCOUNTER 2019-02-04 14:14 | Emergency (ER) | payer SELFPAY ==
[2019-02-04 14:45] VITALS: BP 129/68
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
[2019-02-04 16:25] LABS: ABSOLUTE EOSINOPHILS # (AUTO) 0.1 10^3/uL (0.0-0.6); ABSOLUTE LYMPHOCYTES (AUTO) 1.1 10^3/uL (0.5-4.7); ABSOLUTE MONOCYTES (AUTO) 0.3 10^3/uL (0.1-1.4); ABSOLUTE NEUT (AUTO) 6.4 10^3/uL (1.7-8.2); BASOPHILS % (AUTO) 0.4 % (0-2); EOSINOPHILS % (AUTO) 1.5 % (0-6); HEMATOCRIT 40.6 % (36.0-47.0); HEMOGLOBIN 13.4 g/dL (12.0-15.5); LYMPHOCYTES % (AUTO) 14.3 % (13-45); MEAN CORPUSCULAR VOLUME 85 fl (80-97); MONOCYTES % (AUTO) 3.6 % (3-13); PLATELET COUNT 287 10^3/uL (150-450); RED BLOOD COUNT 4.77 10^6/uL (3.72-5.28); RED CELL DISTRIBUTION WIDTH 13.8 % (11.5-14.0); SEGMENTED NEUTROPHILS % (AUTO) 80.2 % (42-78); TOTAL CELLS COUNTED % (AUTO) 100 %; WHITE BLOOD COUNT 7.9 10^3/uL (4.0-10.5)
[2019-02-04 16:33] LABS: APPEARANCE,URINE CLEAR; BILIRUBIN,URINE NEGATIVE (NEGATIVE); COLOR,URINE YELLOW; GLUCOSE, URINE NEGATIVE (NEGATIVE); KETONES,URINE TRACE mg/dL (NEGATIVE); LEUKOCYTE ESTERASE,URINE NEGATIVE (NEGATIVE); NITRITE,URINE NEGATIVE (NEGATIVE); PROTEIN,URINE NEGATIVE (NEGATIVE); URINE SPECIFIC GRAVITY 1.027; UROBILINOGEN,URINE NEGATIVE mg/dL (<2.0)
[2019-02-04 16:44] LABS: ANION GAP 11 (5-19); BLOOD UREA NITROGEN 10 mg/dL (7-20); CALCIUM 9.7 mg/dL (8.4-10.2); CARBON DIOXIDE 27 mmol/L (22-30); CHLORIDE 105 mmol/L (98-107); GLUCOSE 120 mg/dL (75-110)
--- NOTE | 2019-02-04 16:49 | RADIOLOGY REPORT (SQ) ---
EXAM DESCRIPTION: CERV SP 3 VIEW OR LESS COMPLETED DATE/TIME: 02/04/2019 4:38 pm REASON FOR STUDY: neck pain COMPARISON: None. NUMBER OF VIEWS: Three views. TECHNIQUE: AP, lateral and odontoid radiographic images acquired of the cervical spine. LIMITATIONS: None. FINDINGS: MINERALIZATION: Normal. ALIGNMENT: Anatomic. VERTEBRAE: Vertebral bodies of normal height. DISCS: No significant disc space narrowing. No large osteophytes. HARDWARE: None in the spine. SOFT TISSUES: No masses or calcifications. Lung apices clear. OTHER: No other significant finding. IMPRESSION: NO SIGNIFICANT RADIOGRAPHIC FINDING IN THE CERVICAL SPINE. TECHNICAL DOCUMENTATION: JOB ID: [id number] [employer]- All Rights Reserved Reading location - IP/workstation name: [email or web address]
--- NOTE | 2019-02-04 16:50 | RADIOLOGY REPORT (SQ) ---
EXAM DESCRIPTION: CHEST 2 VIEWS COMPLETED DATE/TIME: 02/04/2019 4:38 pm REASON FOR STUDY: intermittent chest pain, dizziness COMPARISON: 10/11/2017 EXAM PARAMETERS: NUMBER OF VIEWS: two views TECHNIQUE: Digital Frontal and Lateral radiographic views of the chest acquired. RADIATION DOSE: NA LIMITATIONS: none FINDINGS: LUNGS AND PLEURA: No opacities, masses or pneumothorax. No pleural effusion. MEDIASTINUM AND HILAR STRUCTURES: No masses or contour abnormalities. HEART AND VASCULAR STRUCTURES: Heart normal size. No evidence for failure. BONES: No acute findings. HARDWARE: None in the chest. OTHER: No other significant finding. IMPRESSION: NO ACUTE RADIOGRAPHIC FINDING IN THE CHEST. TECHNICAL DOCUMENTATION: JOB ID: [id number] [employer]- All Rights Reserved Reading location - IP/workstation name: [email or web address]
--- NOTE | 2019-02-06 20:32 | EKG REPORT ---
SEVERITY:- NORMAL ECG - SINUS RHYTHM : Confirmed by: Antoinette Lopez 06-Feb-2019 20:31:14
== END 2019-02-04 18:08 | disposition home or self-care (01) ==
LOC: ER 14:14
DX: F07.81 Postconcussional syndrome (principal); R68.84 Jaw pain; R42 Dizziness and giddiness; R53.1 Weakness; R07.9 Chest pain, unspecified; S02.609A Fracture of mandible, unspecified, initial encounter for closed fracture; S16.1XXA Strain of muscle, fascia and tendon at neck level, initial encounter; Y04.2XXA Assault by strike against or bumped into by another person, initial encounter; Z98.890 Other specified postprocedural states; J45.909 Unspecified asthma, uncomplicated; Z88.0 Allergy status to penicillin
CPT/HCPCS: 36415; 71046; 72040; 80048; 81001; 81025; 85025; 93005; 93010; 99283

== ENCOUNTER 2019-02-06 13:08 | Emergency (ER) | payer MEDICAID ==
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
[2019-02-06 14:26] LABS: ABSOLUTE EOSINOPHILS # (AUTO) 0.2 10^3/uL (0.0-0.6); ABSOLUTE LYMPHOCYTES (AUTO) 1.8 10^3/uL (0.5-4.7); ABSOLUTE MONOCYTES (AUTO) 0.4 10^3/uL (0.1-1.4); ABSOLUTE NEUT (AUTO) 3.3 10^3/uL (1.7-8.2); BASOPHILS % (AUTO) 0.8 % (0-2); EOSINOPHILS % (AUTO) 3.4 % (0-6); HEMATOCRIT 37.5 % (36.0-47.0); HEMOGLOBIN 12.5 g/dL (12.0-15.5); LYMPHOCYTES % (AUTO) 31.2 % (13-45); MEAN CORPUSCULAR HEMOGLOBIN 28.7 pg (27.0-33.4); MEAN CORPUSCULAR HGB CONC 33.4 g/dL (32.0-36.0); MEAN CORPUSCULAR VOLUME 86 fl (80-97); MONOCYTES % (AUTO) 6.7 % (3-13); PLATELET COUNT 285 10^3/uL (150-450); RED BLOOD COUNT 4.35 10^6/uL (3.72-5.28); RED CELL DISTRIBUTION WIDTH 14.2 % (11.5-14.0); SEGMENTED NEUTROPHILS % (AUTO) 57.9 % (42-78); TOTAL CELLS COUNTED % (AUTO) 100 %; WHITE BLOOD COUNT 5.7 10^3/uL (4.0-10.5)
[2019-02-06 14:39] LABS: APPEARANCE,URINE SLIGHTLY-CLOUDY; BILIRUBIN,URINE NEGATIVE (NEGATIVE); COLOR,URINE YELLOW; GLUCOSE, URINE NEGATIVE (NEGATIVE); KETONES,URINE NEGATIVE (NEGATIVE); LEUKOCYTE ESTERASE,URINE NEGATIVE (NEGATIVE); NITRITE,URINE NEGATIVE (NEGATIVE); PROTEIN,URINE NEGATIVE (NEGATIVE); URINE SPECIFIC GRAVITY 1.026
[2019-02-06 14:45] LABS: ALANINE AMINOTRANSFERASE 11 U/L (9-52); ALBUMIN 4.2 g/dL (3.5-5.0); ALKALINE PHOSPHATASE 82 U/L (38-126); ANION GAP 9 (5-19); ASPARTATE AMINO TRANSFERASE 26 U/L (14-36); BILIRUBIN,DIRECT 0.2 mg/dL (0.0-0.4); BILIRUBIN,TOTAL 0.2 mg/dL (0.2-1.3); BLOOD UREA NITROGEN 14 mg/dL (7-20); CALCIUM 9.6 mg/dL (8.4-10.2); CARBON DIOXIDE 27 mmol/L (22-30); CHLORIDE 103 mmol/L (98-107); GLUCOSE 90 mg/dL (75-110); POTASSIUM 4.3 mmol/L (3.6-5.0); TOTAL PROTEIN 7.7 g/dL (6.3-8.2)
--- NOTE | 2019-02-06 15:06 | RADIOLOGY REPORT (SQ) ---
EXAM DESCRIPTION: CT HEAD WITHOUT COMPLETED DATE/TIME: 02/06/2019 2:45 pm REASON FOR STUDY: syncpoe COMPARISON: None. TECHNIQUE: Axial images acquired through the brain without intravenous contrast. Images reviewed wi th bone, brain and subdural windows. Additional sagittal and coronal reconstructions were generated. Images stored on PACS. All CT scanners at this facility use dose modulation, iterative reconstruction, and/or weight based d osing when appropriate to reduce radiation dose to as low as reasonably achievable (ALARA). [facility]: Dose Right [facility]: CareDose [facility]: Dose Right [facility]: Teradose 4D [facility]: Smart onefinestay RADIATION DOSE: CT Rad equipment meets quality standard of care and radiation dose reduction techniq ues were employed. CTDIvol: 53.2 mGy. DLP: 1044 mGy-cm. mGy. LIMITATIONS: None. FINDINGS: VENTRICLES: Normal size and contour. CEREBRUM: No masses. No hemorrhage. No midline shift. No evidence for acute infarction. Normal gra y/white matter differentiation. No areas of low density in the white matter. CEREBELLUM: No masses. No hemorrhage. No alteration of density. No evidence for acute infarction. EXTRAAXIAL SPACES: No fluid collections. No masses. ORBITS AND GLOBE: No intra- or extraconal masses. Normal contour of globe without masses. CALVARIUM: No fracture. PARANASAL SINUSES: No fluid or mucosal thickening. Plate and screw fixation of the bilateral maxilla ry bones. SOFT TISSUES: No mass or hematoma. OTHER: No other significant finding. IMPRESSION: No acute intracranial pathology. EVIDENCE OF ACUTE STROKE: NO. COMMENT: Quality ID # [id number]: Final reports with documentation of one or more dose reduction techniques (e.g., Automated exposure control, adjustment of the mA and/or kV according to patient size, use of iterative reconstruction technique) TECHNICAL DOCUMENTATION: JOB ID: [id number] [employer]- All Rights Reserved Reading location - IP/workstation name: [email or web address]
[2019-02-06] MEDS ORDERED: MECLIZINE HCL 25 MG TABLET PO ONE (16:41)
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
[2019-02-06 17:47] VITALS: BP 107/68
== END 2019-02-06 17:52 | disposition home or self-care (01) ==
LOC: ER 13:08
DX: R55 Syncope and collapse (principal); R42 Dizziness and giddiness; Z87.820 Personal history of traumatic brain injury; Z88.0 Allergy status to penicillin
CPT/HCPCS: 36415; 70450; 80053; 81001; 84702; 85025; 99284

== ENCOUNTER 2019-02-23 12:47 | Emergency (ER) | payer MEDICAID ==
[2019-02-23] MEDS ORDERED: DIPHENHYDRAMINE HCL 25 MG CAPSULE PO ONE (15:04)
[2019-02-23] MEDS ORDERED: KETOROLAC TROMETHAMINE 60 MG/2 ML SDV IM ONE (15:04)
[2019-02-23] MEDS ORDERED: METOCLOPRAMIDE HCL INJ/PF 10 MG/2 ML SDV IM ONE (15:05)
[2019-02-23] MEDS ORDERED: KETOROLAC TROMETHAMINE INJ/PF 30 MG/1 ML SDV IV ONE (15:12)
[2019-02-23] MEDS ORDERED: METOCLOPRAMIDE HCL INJ/PF 10 MG/2 ML SDV IV ONE (15:12)
[2019-02-23] MEDS ORDERED: DIPHENHYDRAMINE HCL 50 MG/ML VIAL IV ONE (15:13)
[2019-02-23] MEDS ORDERED: DEXAMETHASONE SOD PHOS INJ 10 MG/1 ML VIAL IV ONE (15:13)
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
[2019-02-23] MEDS ORDERED: DIAZEPAM INJ 10 MG/2 ML DISP.SYRIN IV ONE (17:06)
[2019-02-23 18:14] VITALS: BP 124/83
== END 2019-02-23 18:13 | disposition home or self-care (01) ==
LOC: ER 12:47
DX: R51 Headache (principal); R42 Dizziness and giddiness; H53.10 Unspecified subjective visual disturbances; J45.909 Unspecified asthma, uncomplicated; Z87.81 Personal history of (healed) traumatic fracture; Z87.820 Personal history of traumatic brain injury; Z88.0 Allergy status to penicillin; Z98.84 Bariatric surgery status
CPT/HCPCS: J1200; J1885; J2765; J1100; 96374; 96375; 99283

== ENCOUNTER 2019-11-27 08:37 | Emergency (ER) | payer MEDICAID, OTHER ==
[2019-11-27] MEDS ORDERED: NORMAL SALINE 1000 ML 1,000 ML IV ONE (09:19)
[2019-11-27] MEDS ORDERED: DIPHENHYDRAMINE HCL 50 MG/ML VIAL IV ONE (09:19)
[2019-11-27] MEDS ORDERED: PROCHLORPERAZINE EDISYLATE INJ 10 MG/2 ML VIAL IV ONE (09:19)
[2019-11-27] MEDS ORDERED: KETOROLAC TROMETHAMINE INJ/PF 30 MG/1 ML SDV IV ONE (09:19)
--- NOTE | 2019-11-27 09:21 | ER Document Report ---
ED Medical Screen (RME) - General Chief Complaint: Headache Stated Complaint: DIZZINESS Time Seen by Provider: 11/27/19 09:16 Primary Care Provider: SULY SKAGGS FNP-C [Primary Care Provider] - Follow up as needed Notes: HPI: 29-year-old female with history of daily headaches that she states resulted from a TBI presenting for worsening of her generalized headache, some dizziness and some blurred vision. Patient has been able to walk, states that the dizziness is more of an off-balance sensation. States that she tries not to come into frequently for the headaches, states that when she has been treated for them in the past they usually give her a migraine cocktail which helps with the headaches and other symptoms for several days. She has not seen a neurologist locally recently as she just moved back to this area from [place] a month ago. She has not had a fever. PHYSICAL EXAMINATION: Patient appears mildly uncomfortable. No photophobia. No nystagmus. Gait is normal. Phonation is normal. No slurred speech. No facial droop. I have greeted and performed a rapid initial assessment of this patient. A comprehensive ED assessment and evaluation of the patient, analysis of test results and completion of medical decision making process will be conducted by an additional ED providers. TRAVEL OUTSIDE OF THE [place] IN LAST 30 DAYS: No - Related Data Allergies/Adverse Reactions: iodine [Iodine] Allergy (Verified 11/27/19 09:12) Penicillins Allergy (Verified 11/27/19 09:12) shellfish derived Allergy (Verified 11/27/19 09:13) Home Medications: gabapentin, topamax, propanolol, trazodone, albuterol, epipen, medrol dose pack Past Medical History - Social History Chew tobacco use (# tins/day): No Frequency of alcohol use: None Drug Abuse: None Pulmonary Medical History: Reports: Hx Asthma Endocrine Medical History: Reports: Hx Hypothyroidism Renal/ Medical History: Denies: Hx Peritoneal Dialysis Past Surgical History: Reports: Hx Abdominal Surgery - Gastric sleeve, Hx Section - 2013, Hx Oral Surgery - jaw - Immunizations Hx Diphtheria, Pertussis, Tetanus Vaccination: Yes Physical Exam - Vital signs Vitals: Temp Pulse Resp BP Pulse Ox 97.9 F 101 H 14 128/77 H 99 11/27/19 08:40 11/27/19 08:40 11/27/19 08:40 11/27/19 08:40 11/27/19 08:40 Course - Vital Signs Vital signs: Temp Pulse Resp BP Pulse Ox 97.9 F 101 H 14 128/77 H 99 11/27/19 09:13 11/27/19 08:40 11/27/19 08:40 11/27/19 08:40 11/27/19 08:40 Doctor's Discharge - Discharge Referrals: SULY SKAGGS KILN PUSHER-C [Primary Care Provider] - Follow up as needed
[2019-11-27 09:43] LABS: APPEARANCE,URINE CLEAR; BILIRUBIN,URINE NEGATIVE (NEGATIVE); COLOR,URINE YELLOW; GLUCOSE, URINE NEGATIVE (NEGATIVE); KETONES,URINE NEGATIVE (NEGATIVE); LEUKOCYTE ESTERASE,URINE NEGATIVE (NEGATIVE); NITRITE,URINE NEGATIVE (NEGATIVE); PROTEIN,URINE NEGATIVE (NEGATIVE); URINE SPECIFIC GRAVITY 1.018; UROBILINOGEN,URINE NEGATIVE mg/dL (<2.0)
--- NOTE | 2019-11-27 10:09 | ER Document Report ---
Entered by NEREYDA JORGE SCRIBE 11/27/19 0958 Acting as scribe for:JOCELYNE LEDBETTER MD ED Headache - General Chief Complaint: Headache Stated Complaint: DIZZINESS Time Seen by Provider: 11/27/19 09:16 Primary Care Provider: SULY SKAGGS FNP-C [Primary Care Provider] - Follow up as needed Mode of Arrival: Ambulatory Information source: Patient Notes: This 29-year-old female patient presents to the emergency department today with complaints of a headache. Patient states that she has vomited 3 times this morning as well. Patient states the nausea has continued despite vomiting. TRAVEL OUTSIDE OF THE [place] IN LAST 30 DAYS: No - Related Data Allergies/Adverse Reactions: iodine [Iodine] Allergy (Verified 11/27/19 09:12) Penicillins Allergy (Verified 11/27/19 09:12) shellfish derived Allergy (Verified 11/27/19 09:13) Home Medications: gabapentin, topamax, propanolol, trazodone, albuterol, epipen, medrol dose pack Past Medical History - General Information source: Patient - Social History Smoking Status: Never Smoker Cigarette use (# per day): No Chew tobacco use (# tins/day): No Frequency of alcohol use: None Drug Abuse: None Lives with: Spouse/Significant other Family History: Reviewed & Not Pertinent, CAD - after age 40, DM, Hypertension, Thyroid Disfunction Patient has homicidal ideation: No Pulmonary Medical History: Reports: Hx Asthma Endocrine Medical History: Reports: Hx Hypothyroidism Past Surgical History: Reports: Hx Abdominal Surgery - Gastric sleeve, Hx Section - 2013, Hx Oral Surgery - jaw - Immunizations Hx Diphtheria, Pertussis, Tetanus Vaccination: Yes Review of Systems - Review of Systems Constitutional: No symptoms reported EENT: No symptoms reported Cardiovascular: No symptoms reported Respiratory: No symptoms reported Gastrointestinal: See HPI, Nausea, Vomiting Genitourinary: No symptoms reported Female Genitourinary: No symptoms reported Musculoskeletal: No symptoms reported Skin: No symptoms reported Hematologic/Lymphatic: No symptoms reported Neurological/Psychological: See HPI, Headaches -: Yes All other systems reviewed and negative Physical Exam - Vital signs Vitals: Temp Pulse Resp BP Pulse Ox 97.9 F 101 H 14 128/77 H 99 11/27/19 08:40 11/27/19 08:40 11/27/19 08:40 11/27/19 08:40 11/27/19 08:40 - Notes Notes: Physical Exam: General: Alert, appears well. HEENT: Normocephalic. Atraumatic. PERRL. Extraocular movements intact. Oropharynx clear. Scalp and posterior cervical muscles are tender to palpation. Neck: Supple. Non-tender. Respiratory: No respiratory distress. Clear and equal breath sounds bilaterally. Cardiovascular: Regular rate and rhythm. Abdominal: Normal Inspection. Non-tender. No distension. Normal Bowel Sounds. Back: No gross abnormalities. Extremities: Moves all four extremities. Upper extremities: Normal inspection. Normal ROM. Lower extremities: Normal inspection. No edema. Normal ROM. Neurological: Normal cognition. AAOx4. Normal speech. Psychological: Normal affect. Normal Mood. Skin: Warm. Dry. Normal color. Course - Re-evaluation Re-evalutation: 11/27/19 11:09 Patient reports her headache is much better and she feels comfortable going home at this time. - Vital Signs Vital signs: Temp Pulse Resp BP Pulse Ox 97.9 F 101 H 14 128/77 H 99 11/27/19 09:13 11/27/19 08:40 11/27/19 08:40 11/27/19 08:40 11/27/19 08:40 Discharge - Discharge Clinical Impression: Tension type headache Qualifiers: Headache chronicity pattern: acute headache Intractability: not intractable Q ualified Code(s): G44.209 - Tension-type headache, unspecified, not intractable Condition: Stable Disposition: HOME, SELF-CARE Additional Instructions: Tension Headache Your problem has been diagnosed as muscle tension headache. This very common type of headache occurs because of tightness in the muscles of the head and neck. The cause may be neck or jaw joint problems, but most commonly the cause is emotional stress. The headache may last hours or days. The treatment of uncomplicated tension headaches is rest and pain medication. Often, the newer antiinflammatory pain medications are prescribed, as these also decrease the irritability of the painful tissues. Muscle relaxers, cold packs, or warm packs are sometimes helpful. Anti-anxiety medication or narcotics are sometimes needed temporarily, but are best avoided in the long run. Your doctor has evaluated your headache problem, and finds no evidence of a serious health problem as a cause for the headache. If your headache becomes more severe, or if new symptoms develop (such as fever, stiff neck, vomiting, or decreasing alertness) you should be re-examined by the physician. Take Tylenol and ibuprofen for your headache. Take the Reglan as prescribed for headache or nauseousness if needed. Rest in a cool quiet dark room today. Drink plenty of fluids. Follow-up with your primary care provider if not improving. RETURN TO THE EMERGENCY ROOM IF ANY NEW OR WORSENING SYMPTOMS. Prescriptions: Metoclopramide HCl [Reglan 10 mg Tablet] 10 mg PO ASDIR PRN #15 tablet PRN Reason: Referrals: SULY SKAGGS, STARRC [Primary Care Provider] - Follow up as needed I personally performed the services described in the documentation, reviewed and edited the documentation which was dictated to the scribe in my presence, and it accurately records my words and actions.
[2019-11-27 11:27] VITALS: BP 102/58
== END 2019-11-27 11:28 | disposition home or self-care (01) ==
LOC: ER 08:37
DX: G44.209 Tension-type headache, unspecified, not intractable (principal); R11.2 Nausea with vomiting, unspecified; J45.909 Unspecified asthma, uncomplicated; Z79.899 Other long term (current) drug therapy; Z98.84 Bariatric surgery status; Z88.0 Allergy status to penicillin; Z91.013 Allergy to seafood
CPT/HCPCS: 99284; 96361; 96374; 96375; 81025; 81001; J1200; J1885; J0780; J7030

== ENCOUNTER 2019-12-18 13:29 | Emergency (ER) | payer OTHER ==
--- NOTE | 2019-12-18 14:11 | ER Document Report ---
ED Medical Screen (RME) - General Chief Complaint: Vaginal Pain Stated Complaint: VAGINAL PAIN Time Seen by Provider: 12/18/19 14:07 Primary Care Provider: ELIZABETH ASHTON DO [Primary Care Provider] - Follow up as needed Mode of Arrival: Ambulatory Information source: Patient Notes: HPI; 29-year-old female no previous medical problems presents to the emergency room stating that when she urinates she feels like something is coming out of her vagina and then retracts back in again. Also complaining of some lower pelvic pain. Denies any urinary symptoms. Denies any vaginal discharge. PE: Alert and oriented x3. Mild distress noted. Lungs are clear to auscultation without rales, rhonchi, wheezes. Heart: Tachycardic without murmurs, rubs, gallops. Abdomen soft nontender, nondistended. Positive bowel sounds x4. No organomegaly, no splenomegaly, no CVA tenderness bilaterally I have greeted and performed a rapid initial assessment of this patient. A c omprehensive ED assessment and evaluation of the patient, analysis of test results and completion of the medical decision making process will be conducted by additional ED providers. I have specifically instructed the patient or family members with the patient to immediately return to any nursing staff should anything change in the patient's condition or with their chief complaint. TRAVEL OUTSIDE OF THE [place] IN LAST 30 DAYS: No - Related Data Allergies/Adverse Reactions: iodine [Iodine] Allergy (Verified 11/27/19 09:12) Penicillins Allergy (Verified 11/27/19 09:12) shellfish derived Allergy (Verified 11/27/19 09:13) Past Medical History Pulmonary Medical History: Reports: Hx Asthma Endocrine Medical History: Reports: Hx Hypothyroidism Renal/ Medical History: Denies: Hx Peritoneal Dialysis Past Surgical History: Reports: Hx Abdominal Surgery - Gastric sleeve, Hx Section - 2013, Hx Oral Surgery - jaw - Immunizations Hx Diphtheria, Pertussis, Tetanus Vaccination: Yes Physical Exam - Vital signs Vitals: Temp Pulse Resp BP Pulse Ox 98.9 F 106 H 14 133/84 H 97 12/18/19 13:34 12/18/19 13:34 12/18/19 13:34 12/18/19 13:34 12/18/19 13:34 Course - Vital Signs Vital signs: Temp Pulse Resp BP Pulse Ox 98.9 F 106 H 14 133/84 H 97 12/18/19 13:34 12/18/19 13:34 12/18/19 13:34 12/18/19 13:34 12/18/19 13:34 Doctor's Discharge - Discharge Referrals: ELIZABETH ASHTON DO [Primary Care Provider] - Follow up as needed
[2019-12-18 15:04] LABS: APPEARANCE,URINE CLEAR; BILIRUBIN,URINE NEGATIVE (NEGATIVE); COLOR,URINE YELLOW; GLUCOSE, URINE NEGATIVE (NEGATIVE); KETONES,URINE NEGATIVE (NEGATIVE); LEUKOCYTE ESTERASE,URINE NEGATIVE (NEGATIVE); NITRITE,URINE NEGATIVE (NEGATIVE); PROTEIN,URINE 30 mg/dL (NEGATIVE); URINE SPECIFIC GRAVITY 1.027
--- NOTE | 2019-12-18 15:48 | ER Document Report ---
HPI - HPI Time Seen by Provider: 12/18/19 14:07 Onset: Other - 4 days Onset/Duration: Waxing and waning Quality of pain: Achy Pain Level: 3 Context: Patient states that whenever she bears down or coughs she can feel something bulging from her vagina. Patient denies any trauma. Patient denies any urinary symptoms or vaginal discharge. Patient denies any concern about STI. Patient denies any previous history of vaginal delivery. Associated Symptoms: Other - Bulging from the vagina Exacerbated by: Other - Increased intra-abdominal pressure Relieved by: Denies Similar symptoms previously: No Recently seen / treated by doctor: No - ROS ROS below otherwise negative: Yes Systems Reviewed and Negative: Yes All other systems reviewed and negative - CONSTITUTIONAL Constitutional: DENIES: Fever, Chills - GASTROINTESTINAL Gastrointestinal: DENIES: Abdominal Pain, Nausea, Patient vomiting, Black / Bloody Stools - REPRODUCTIVE Reproductive: DENIES: : Notes: Bulging from the vagina - DERM Skin Color: Normal Skin Problems: None Past Medical History - General Information source: Patient - Social History Smoking Status: Never Smoker Frequency of alcohol use: Occasional Drug Abuse: None Occupation: Nurse aide Lives with: Family Family History: Reviewed & Not Pertinent, CAD - after age 40, DM, Hypertension, Thyroid Disfunction Patient has homicidal ideation: No Pulmonary Medical History: Reports: Hx Asthma Endocrine Medical History: Reports: Hx Hypothyroidism Renal/ Medical History: Denies: Hx Peritoneal Dialysis Past Surgical History: Reports: Hx Abdominal Surgery - Gastric sleeve, Hx Section - 2013, Hx Oral Surgery - jaw x2 - Immunizations Hx Diphtheria, Pertussis, Tetanus Vaccination: Yes Vertical Provider Document - CONSTITUTIONAL Agree With Documented VS: Yes Exam Limitations: No Limitations General Appearance: WD/WN, No Apparent Distress - INFECTION CONTROL TRAVEL OUTSIDE OF THE [place] IN LAST 30 DAYS: No - HEENT HEENT: Atraumatic, Normocephalic - NECK Neck: Normal Inspection - RESPIRATORY Respiratory: No Respiratory Distress - GI/ABDOMEN Gastrointestinal: Abdomen Soft, Abdomen Non-Tender, No Organomegaly, Normal Bowel Sounds - REPRODUCTIVE Female Genitalia: Abnormal Inspection - Patient with pelvic organ prolapse noted on pelvic examination within vaginal vault, nothing protrudes externally, APRIL Aquino as standby - BACK Back: Normal Inspection - MUSCULOSKELETAL/EXTREMETIES Musculoskeletal/Extremeties: ERASMO, JU - NEURO Level of Consciousness: Awake, Alert, Appropriate Motor/Sensory: No Motor Deficit - DERM Integumentary: Warm Course - Re-evaluation Re-evalutation: 12/18/19 15:52 Patient with what appears to be pelvic organ prolapse, no abdominal tenderness, no concern for strangulated hernia at this time. Patient denies any concern about STI. Patient encouraged to follow-up with a client support representative for further management of her symptoms. Discussed worsening signs or symptoms that patient should return immediately for. Patient verbalized understanding and is agreeable with plan of care. - Vital Signs Vital signs: Temp Pulse Resp BP Pulse Ox 98.9 F 106 H 14 133/84 H 97 12/18/19 14:07 12/18/19 13:34 12/18/19 13:34 12/18/19 13:34 12/18/19 13:34 - Laboratory Laboratory results interpreted by me: 12/18/19 14:30 Urine Protein 30 H Urine Urobilinogen 2.0 H Discharge - Discharge Clinical Impression: pelvic organ prolapse Condition: Stable Disposition: HOME, SELF-CARE Additional Instructions: Return immediately for any new or worsening symptoms Followup with your primary care provider, call tomorrow to make a followup appointment Follow-up with a client support representative for further management. Avoid activities that increase your intra-abdominal pressure such as heavy lifting and straining. Referrals: ELIZABETH SAHTON DO [Primary Care Provider] - Follow up as needed [facility] [Provider Group] - Follow up tomorrow
[2019-12-18 16:10] VITALS: BP 128/87
== END 2019-12-18 16:01 | disposition home or self-care (01) ==
LOC: ER 13:29
DX: N81.9 Female genital prolapse, unspecified (principal); J45.909 Unspecified asthma, uncomplicated; Z98.84 Bariatric surgery status
CPT/HCPCS: 81001; 99283

== ENCOUNTER → 2019-12-20 | Outpatient (CLI) | payer OTHER ==
[2019-12-20 12:11] LABS: BACTERIA (WET MOUNT) 3+ BACTERIA SEEN; EPITHELIALS (WET MOUNT) 3+ EPITHELIALS SEEN; RBCS (WET MOUNT) FEW RBCS SEEN; T.VAGINALIS (WET MOUNT) NO TRICHOMONAS SEEN; WBCS (WET MOUNT) 2+ WBCS SEEN; YEAST (WET MOUNT) NO YEAST SEEN
[2019-12-20 13:42] LABS: CHLAM PCR NOT DETECTED (NOT DETECT)
== END ==
LOC: LAB 12:05
PROVIDERS: ATTEND Nurse Practitioner Acute Care
DX: N89.8 Other specified noninflammatory disorders of vagina (principal)
CPT/HCPCS: 87210; 87491; 87591

== ENCOUNTER 2020-01-16 13:24 | Emergency (ER) | payer OTHER ==
[2020-01-16 13:29] VITALS: BP 132/80
== END 2020-01-16 15:40 | disposition left against medical advice (07) ==
LOC: ER 13:24
DX: Z53.21 Procedure and treatment not carried out due to patient leaving prior to being seen by health care provider (principal)

== ENCOUNTER 2020-02-26 20:22 | Emergency (ER) | payer OTHER ==
--- NOTE | 2020-02-26 22:16 | ER Document Report ---
ED Medical Screen (RME) - General Chief Complaint: STD Exposure Stated Complaint: PELVIC PAIN, VAGINAL PAIN Time Seen by Provider: 02/26/20 22:15 Primary Care Provider: CHANI BOUCHER NP [Primary Care Provider] - Follow up as needed Mode of Arrival: Ambulatory Information source: Patient Notes: HPI; 9-year-old female presents emergency room complaining of vaginal discharge, dysuria, and pelvic pain for the past several days. Patient states she was seen and treated 2 weeks ago for chlamydia symptoms started to get back and returned again 3 days ago. She denies any nausea, vomiting, . PE: Alert and oriented x3. Lungs: Clear to auscultation without rales, rhonchi, wheezes. Heart: Regular rate rhythm without murmurs, rubs, gallops. Unable to do full exam in triage. I have greeted and performed a rapid initial assessment of this patient. A comprehensive ED assessment and evaluation of the patient, analysis of test results and completion of the medical decision making process will be conducted by additional ED providers. I have specifically instructed the patient or family members with the patient to immediately return to any nursing staff should anything change in the patient's condition or with their chief complaint. TRAVEL OUTSIDE OF THE [place] IN LAST 30 DAYS: No - Related Data Allergies/Adverse Reactions: iodine [Iodine] Allergy (Verified 02/26/20 22:10) Penicillins Allergy (Verified 02/26/20 22:10) shellfish derived Allergy (Verified 02/26/20 22:10) Past Medical History - Social History Frequency of alcohol use: None Drug Abuse: None Pulmonary Medical History: Reports: Hx Asthma Endocrine Medical History: Reports: Hx Hypothyroidism Renal/ Medical History: Denies: Hx Peritoneal Dialysis Past Surgical History: Reports: Hx Abdominal Surgery - Gastric sleeve, Hx Section - 2013, Hx Oral Surgery - jaw x2 - Immunizations Hx Diphtheria, Pertussis, Tetanus Vaccination: Yes Physical Exam - Vital signs Vitals: Temp Pulse Resp BP Pulse Ox 98.9 F 93 20 143/89 H 97 02/26/20 21:43 02/26/20 21:43 02/26/20 21:43 02/26/20 21:43 02/26/20 21:43 Course - Vital Signs Vital signs: Temp Pulse Resp BP Pulse Ox 98.9 F 93 20 143/89 H 97 02/26/20 21:43 02/26/20 21:43 02/26/20 21:43 02/26/20 21:43 02/26/20 21:43 Doctor's Discharge - Discharge Referrals: CHANI BOUCHER, HE[employer]REAT FURNACE OPERATOR [Primary Care Provider] - Follow up as needed
[2020-02-26 22:45] LABS: APPEARANCE,URINE CLEAR; BILIRUBIN,URINE NEGATIVE (NEGATIVE); COLOR,URINE YELLOW; GLUCOSE, URINE NEGATIVE (NEGATIVE); KETONES,URINE NEGATIVE (NEGATIVE); LEUKOCYTE ESTERASE,URINE NEGATIVE (NEGATIVE); NITRITE,URINE NEGATIVE (NEGATIVE); PROTEIN,URINE NEGATIVE (NEGATIVE); URINE SPECIFIC GRAVITY 1.019; UROBILINOGEN,URINE NEGATIVE mg/dL (<2.0)
--- NOTE | 2020-02-27 00:50 | ER Document Report ---
ED GI/ - General Chief Complaint: STD Exposure Stated Complaint: PELVIC PAIN, VAGINAL PAIN Time Seen by Provider: 02/26/20 22:15 Primary Care Provider: CHANI BOUCHER NP [NO LOCAL MD] - Follow up as needed Mode of Arrival: Ambulatory Information source: Patient Notes: 29-year-old female patient presents emergency department with complaints of abnormal vaginal discharge and vaginal discomfort. Patient reports she was diagnosed with chlamydia a few weeks ago. She states she had treatment which seemed to resolve her symptoms and then the symptoms returned last week. She saw her doctor who started her on Flagyl and doxycycline and gave her a shot of Rocephin. Patient reports she continues to have the discharge and she now has what she describes as discomfort around the vaginal area. She denies any specific pain. TRAVEL OUTSIDE OF THE [place] IN LAST 30 DAYS: No - Related Data Allergies/Adverse Reactions: iodine [Iodine] Allergy (Verified 02/26/20 22:10) Penicillins Allergy (Verified 02/26/20 22:10) shellfish derived Allergy (Verified 02/26/20 22:10) Past Medical History - General Information source: Patient - Social History Smoking Status: Never Smoker Frequency of alcohol use: None Drug Abuse: None Family History: Reviewed & Not Pertinent, CAD - after age 40, DM, Hypertension, Thyroid Disfunction Pulmonary Medical History: Reports: Hx Asthma Endocrine Medical History: Reports: Hx Hypothyroidism Renal/ Medical History: Denies: Hx Peritoneal Dialysis Psychiatric Medical History: Reports: Hx Bipolar Disorder Past Surgical History: Reports: Hx Abdominal Surgery - Gastric sleeve, Hx Section - 2013, Hx Oral Surgery - jaw x2 - Immunizations Hx Diphtheria, Pertussis, Tetanus Vaccination: Yes Review of Systems - Review of Systems Constitutional: No symptoms reported EENT: No symptoms reported Cardiovascular: No symptoms reported Respiratory: No symptoms reported Gastrointestinal: No symptoms reported Genitourinary: No symptoms reported Female Genitourinary: See HPI Musculoskeletal: No symptoms reported Skin: No symptoms reported Hematologic/Lymphatic: No symptoms reported Neurological/Psychological: No symptoms reported Physical Exam - Vital signs Vitals: Temp Pulse Resp BP Pulse Ox 98.9 F 93 20 143/89 H 97 02/26/20 21:43 02/26/20 21:43 02/26/20 21:43 02/26/20 21:43 02/26/20 21:43 - Notes Notes: PHYSICAL EXAMINATION: GENERAL: Well-appearing, well-nourished and in no acute distress. HEAD: Atraumatic, normocephalic. EYES: Pupils equal round and reactive to light, extraocular movements intact, conjunctiva are normal. ENT: Nares patent, oropharynx clear without exudates. Moist mucous membranes. NECK: Normal range of motion, supple without lymphadenopathy LUNGS: Breath sounds clear to auscultation bilaterally and equal. No wheezes rales or rhonchi. HEART: Regular rate and rhythm without murmurs ABDOMEN: Soft, nontender, nondistended abdomen. No guarding, no rebound. No masses appreciated. Female : Normal external genitalia. Cervix non-friable, no cervical motion or adnexal tenderness. White thin vaginal discharge noted at the cervix. Musculoskeletal: Normal range of motion, no pitting or edema. No cyanosis. NEUROLOGICAL: Cranial nerves grossly intact. Normal speech, normal gait. Normal sensory, motor exams PSYCH: Normal mood, normal affect. SKIN: Warm, Dry, normal turgor, no rashes or lesions noted. Course - Re-evaluation Re-evalutation: Pelvis Ultrasound 02/27/20 00:49 IMPRESSION: Normal pelvic sonogram. IUD. Laboratory 02/26/20 02/26/20 02/27/20 20:24 20:24 00:45 Urine Color YELLOW Urine Appearance CLEAR Urine pH 5.0 Ur Specific Ruffin 1.019 Urine Protein NEGATIVE Urine Glucose (UA) NEGATIVE Urine Ketones NEGATIVE Urine Blood MODERATE H Urine Nitrite NEGATIVE Urine Bilirubin NEGATIVE Urine Urobilinogen NEGATIVE Ur Leukocyte Esterase NEGATIVE Urine WBC (Auto) 2 Urine RBC (Auto) 0 Squamous Epi Cells Auto <1 Urine Mucus (Auto) RARE Urine Ascorbic Acid NEGATIVE Urine HCG, Qual NEGATIVE Epi Cells (Wet Prep) Bacteria (Wet Prep) Trichomonas (Wet Prep) Vaginal WBC Vaginal RBC Vaginal Yeast Chlamydia DNA (PCR) NOT DETECTED N.gonorrhoeae DNA (PCR) NOT DETECTED 02/27/20 00:45 Urine Color Urine Appearance Urine pH Ur Specific Ruffin Urine Protein Urine Glucose (UA) Urine Ketones Urine Blood Urine Nitrite Urine Bilirubin Urine Urobilinogen Ur Leukocyte Esterase Urine WBC (Auto) Urine RBC (Auto) Squamous Epi Cells Auto Urine Mucus (Auto) Urine Ascorbic Acid Urine HCG, Qual Epi Cells (Wet Prep) 3+ EPITHELIALS SEEN Bacteria (Wet Prep) 3+ BACTERIA SEEN Trichomonas (Wet Prep) NO TRICHOMONAS SEEN Vaginal WBC FEW WBCS SEEN Vaginal RBC NO RBCS SEEN Vaginal Yeast NO YEAST SEEN Chlamydia DNA (PCR) N.gonorrhoeae DNA (PCR) Patient's wet mount shows 3+ bacteria. She has been on Flagyl for nearly 1 week. This is clearly not working. We will change her over to the clindamycin vaginal suppositories. She will follow back up with her doctor next week for repeat wet mount to ensure that this is worked. We did obtain a transvaginal ultrasound which was normal. Patient had no cervical motion tenderness or adnexal tenderness on exam. I encouraged her to continue taking the doxycycline as prescribed by her outpatient provider but to stop taking the Flagyl as we are replacing it with the clindamycin gel. - Vital Signs Vital signs: Temp Pulse Resp BP Pulse Ox 98.0 F 78 16 117/87 H 98 02/27/20 02:20 02/27/20 02:20 02/27/20 02:20 02/27/20 02:20 02/27/20 02:20 - Laboratory Laboratory results interpreted by me: 02/26/20 20:24 Urine Blood MODERATE H Discharge - Discharge Clinical Impression: Bacterial vaginosis Condition: Stable Disposition: HOME, SELF-CARE Instructions: Cephalosporins ([facility]), [employer] Manager Doctors Additional Instructions: You have an overgrowth of natural vaginal bacteria, called bacterial vaginosis. You are being treated with an antibiotic called clindamycin. Complete all of the antibiotic even if your symptoms have resolved. Return for abdominal pain, vomiting, fever of greater than 101F, or any other symptoms that are worrisome to you. Please follow-up with your FLATLOCK SEWING MACHINE OPERATOR or primary care doctor as needed. Prescriptions: Metronidazole [Metrogel 0.75% Vaginal Gel] 1 applic VG DAILY 5 Days #5 tube Referrals: CHANI BOUCHER NP [NO LOCAL MD] - Follow up as needed
[2020-02-27 01:02] LABS: BACTERIA (WET MOUNT) 3+ BACTERIA SEEN; EPITHELIALS (WET MOUNT) 3+ EPITHELIALS SEEN; RBCS (WET MOUNT) NO RBCS SEEN; T.VAGINALIS (WET MOUNT) NO TRICHOMONAS SEEN; WBCS (WET MOUNT) FEW WBCS SEEN; YEAST (WET MOUNT) NO YEAST SEEN
--- NOTE | 2020-02-27 01:55 | RADIOLOGY REPORT (SQ) ---
EXAM DESCRIPTION: US PELVIS COMPLETED DATE/TME: 02/27/2020 00:49 CLINICAL HISTORY: 29 years Female, recent STD, now R pelvic pain Comparison: 06/28/18 Technique: Transabdominal. LIMITATIONS: None. FINDINGS: 9-cm uterus, IUD, 1.0-cm endometrial stripe thickness, 3.1-cm right ovary, and 2.7-cm left ovary appear normal in size, shape, echotexture, and vascularity. No free fluid. IMPRESSION: Normal pelvic sonogram. IUD.
[2020-02-27] MEDS ORDERED: CLINDAMYCIN HCL 150 MG CAPSULE PO ONE (02:04)
[2020-02-27 02:24] VITALS: BP 117/87
[2020-02-27 02:47] LABS: CHLAM PCR NOT DETECTED (NOT DETECT)
== END 2020-02-27 02:24 | disposition home or self-care (01) ==
LOC: ER 20:22
DX: N76.0 Acute vaginitis (principal); B96.89 Other specified bacterial agents as the cause of diseases classified elsewhere; Z20.2 Contact with and (suspected) exposure to infections with a predominantly sexual mode of transmission; R10.2 Pelvic and perineal pain; Z79.899 Other long term (current) drug therapy; Z88.0 Allergy status to penicillin; Z88.8 Allergy status to other drugs, medicaments and biological substances; J45.909 Unspecified asthma, uncomplicated
CPT/HCPCS: 76856; 81001; 81025; 87210; 87491; 87591; 93976; 99284

== ENCOUNTER 2020-07-04 12:52 | Emergency (ER) | payer MEDICAID, OTHER ==
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
[2020-07-04 14:22] LABS: ABSOLUTE EOSINOPHILS # (AUTO) 0.2 10^3/uL (0.0-0.6); ABSOLUTE MONOCYTES (AUTO) 0.4 10^3/uL (0.1-1.4); ABSOLUTE NEUT (AUTO) 5.3 10^3/uL (1.7-8.2); APPEARANCE,URINE CLEAR; BASOPHILS % (AUTO) 0.5 % (0-2); BILIRUBIN,URINE NEGATIVE (NEGATIVE); COLOR,URINE YELLOW; EOSINOPHILS % (AUTO) 3.5 % (0-6); GLUCOSE, URINE NEGATIVE (NEGATIVE); HEMOGLOBIN 12.7 g/dL (12.0-15.5); KETONES,URINE NEGATIVE (NEGATIVE); LEUKOCYTE ESTERASE,URINE NEGATIVE (NEGATIVE); LYMPHOCYTES % (AUTO) 14.2 % (13-45); MEAN CORPUSCULAR HEMOGLOBIN 29.3 pg (27.0-33.4); MEAN CORPUSCULAR HGB CONC 33.5 g/dL (32.0-36.0); MEAN CORPUSCULAR VOLUME 88 fl (80-97); MONOCYTES % (AUTO) 5.7 % (3-13); NITRITE,URINE NEGATIVE (NEGATIVE); PLATELET COUNT 250 10^3/uL (150-450); PROTEIN,URINE NEGATIVE (NEGATIVE); RED BLOOD COUNT 4.33 10^6/uL (3.72-5.28); RED CELL DISTRIBUTION WIDTH 13.4 % (11.5-14.0); SEGMENTED NEUTROPHILS % (AUTO) 76.1 % (42-78); TOTAL CELLS COUNTED % (AUTO) 100 %; URINE SPECIFIC GRAVITY 1.028; UROBILINOGEN,URINE NEGATIVE mg/dL (<2.0)
[2020-07-04 14:33] LABS: ALBUMIN 4.2 g/dL (3.5-5.0); ALKALINE PHOSPHATASE 77 U/L (38-126); ANION GAP 7 (5-19); ASPARTATE AMINO TRANSFERASE 37 U/L (14-36); BILIRUBIN,DIRECT 0.1 mg/dL (0.0-0.4); BILIRUBIN,TOTAL 0.3 mg/dL (0.2-1.3); BLOOD UREA NITROGEN 15 mg/dL (7-20); CALCIUM 9.6 mg/dL (8.4-10.2); CARBON DIOXIDE 25 mmol/L (22-30); CHLORIDE 105 mmol/L (98-107); GLUCOSE 103 mg/dL (75-110); POTASSIUM 4.2 mmol/L (3.6-5.0); TOTAL PROTEIN 7.8 g/dL (6.3-8.2)
--- NOTE | 2020-07-04 17:14 | ER Document Report ---
ED GI/ - General Chief Complaint: Abdominal Pain Stated Complaint: PELVIC PAIN Time Seen by Provider: 07/04/20 13:36 Primary Care Provider: JULITA REID NP [Primary Care Provider] - Follow up as needed Mode of Arrival: Ambulatory Information source: Patient Notes: This 30-year-old woman presents to the emergency department with a complaint of right lower quadrant discomfort. She has had no fever and no change in appetite. The pain is intermittent and she describes as a fullness. Onset of symptoms 1 day prior to went to the emergency department. She describes it as intermittent and a sense of fullness occasional lower right quadrant pain. Patient has known but has no prior work-up. 3 para 2 with 00. The time of this interview and exam the patient has just completed eating her lunch, states that her pain is improved some. She had just returned from ultrasound. TRAVEL OUTSIDE OF THE [place] IN LAST 30 DAYS: No - Related Data Allergies/Adverse Reactions: iodine [Iodine] Allergy (Verified 07/04/20 13:33) Penicillins Allergy (Verified 07/04/20 13:33) shellfish derived Allergy (Verified 07/04/20 13:33) Past Medical History - General Information source: Patient - Social History Smoking Status: Never Smoker Family History: Reviewed & Not Pertinent, CAD - after age 40, DM, Hypertension, Thyroid Disfunction Pulmonary Medical History: Reports: Hx Asthma Endocrine Medical History: Reports: Hx Hypothyroidism Renal/ Medical History: Denies: Hx Peritoneal Dialysis Psychiatric Medical History: Reports: Hx Bipolar Disorder Past Surgical History: Reports: Hx Abdominal Surgery - Gastric sleeve, Hx Section - 2013, Hx Oral Surgery - jaw x2 - Immunizations Hx Diphtheria, Pertussis, Tetanus Vaccination: Yes Review of Systems - Review of Systems Notes: Constitutional: Negative for fever. HENT: Negative for sore throat. Eyes: Negative for visual changes. Cardiovascular: Negative for chest pain. Respiratory: Negative for shortness of breath. Gastrointestinal: See HPI Genitourinary: See HPI Musculoskeletal: Negative for back pain. Skin: Negative for rash. Neurological: Negative for headaches, weakness or numbness. 10 point ROS negative except as marked above and in HPI. Physical Exam - Vital signs Vitals: Temp Pulse Resp BP Pulse Ox 98.3 F 102 H 20 144/84 H 100 07/04/20 13:00 07/04/20 13:00 07/04/20 13:00 07/04/20 13:00 07/04/20 13:00 - Notes Notes: PHYSICAL EXAMINATION: Physical Exam: General: Well-nourished well-developed 30-year-old female in no acute distress HEENT: NC/AT, pupils equal round and reactive to light, MM moist,nares clear, oropharynx clear, airway patent Neck: supple, no adenopathy, no masses. Good range of motion Lungs: clear, no wheezing, no rales no rhonchi CVS: Regular rate and rhythm no murmur gallop or rub Abdomen: Soft, active, nontender, no masses, no hepatosplenomegaly Ext: No edema, clubbing or cyanosis. Neuro: Alert and responsive, moving all 4 extremities on command, cranial nerves intact, no focal findings Skin: Intact no open lesions, no rash Course - Re-evaluation Re-evalutation: 07/05/20 09:21 Patient is presently asymptomatic, I have reviewed the findings of the ultrasound and laboratory data with the patient. She is being discharged to follow-up as an outpatient with [facility] encouraged her to use Tylenol for any p ain, also to start vitamins. She notes that she attempted next week to get a appointment with [facility]. - Vital Signs Vital signs: Temp Pulse Resp BP Pulse Ox 98.9 F 97 16 119/80 100 07/04/20 17:24 07/04/20 17:24 07/04/20 17:24 07/04/20 17:24 07/04/20 17:24 - Laboratory Results Result Diagrams: 07/04/20 13:55 07/04/20 13:55 Laboratory Results Interpreted: 07/04/20 07/04/20 13:55 13:55 Sodium 136.7 L AST 37 H Beta HCG, Quant 423.21 H Urine Ascorbic Acid 40 H 07/04/20 17:11 I have reviewed laboratory data and used this information for the treatment decisions regarding the patient. Critical Laboratory Results Reviewed: No Critical Results - Radiology Results Radiology Results Interpreted: 07/05/20 09:22 Obstetrics Ultrasound 07/04/20 13:40 IMPRESSION: NO VISUALIZED INTRA- OR EXTRAUTERINE . bHCG LEVEL TOO LOW TO EXPECT VISUALIZATION OF . ECTOPIC CANNOT BE EXCLUDED. FOLLOW-UP ULTRASOUND AND SERIAL BHCG LEVELS STRONGLY RECOMMENDED TO ACCURATELY ASSESS STATUS. Critical Radiology Results Reviewed: No Critical Results Discharge - Discharge Clinical Impression: First trimester , Pelvic pain Condition: Good Disposition: HOME, SELF-CARE Instructions: Pelvic Pain in ([facility]), ([facility]) Additional Instructions: You were seen in the emergency department today with right-sided pelvic pain and found to have a early approximately 4 weeks. The pain that you have been experiencing may be related to the early . Given that is an intr auterine and presently no abnormalities you may use Tylenol to help with the pain and begin your vitamins. Follow-up with an [facility] as soon as possible. Your symptoms are worsening or if you have other concerns you may return to the emergency department for further evaluation and treatment. HOME CARE INSTRUCTIONS & INFORMATION: Thank you for choosing us for your medical needs. We hope you're satisfied with the care you received. After you leave, you must properly care for your problem and, at the same time, observe its progress. Any condition can change. Some illnesses can change rapidly over hours or days. If your condition worsens, return to the Emergency Department or see your physician promptly. ABOUT YOUR X-RAYS AND EKG'S: If you had an EKG or X-rays taken, they have been read by the Emergency Physician. The X-rays and EKG's will also be read by a Radiologist or Balance Bridge Inspector within 24 hours. If discrepancies are noted, you will be notified by telephone. Please be certain the ED has a correct telephone number & address where you can be reached. Also, realize that some fractures or abnormalities do not show up on initial X-rays. If your symptoms continue, see your physician. ABOUT YOUR LABORATORY TEST: If you had laboratory tests, the results have been reviewed by the Emergency Physician. Some test results (for example cultures) may not be available for several days. You will be contacted if any test result shows you need additional treatment. Please be certain the ED has a correct telephone number and address where you can be reached. ABOUT YOUR MEDICATIONS: You will receive instructions on how to take your medicine on the prescription label you receive. Additional information may be provided by the Pharmacy. If you have questions afterwards, call the ED for clarification or further instructions. Some prescribed medications may cause drowsiness. Do not perform tasks such as driving a car or operating machinery without consulting your Pharmacist. If you feel you need a refill of pain medication, your condition will need re-evaluation. Please do not call for a refill of any medication. ABOUT YOUR SIGNATURE: Signature of this document acknowledges to followin. Understanding that you received emergency treatment and that you may be released before al medical problems are known or treated. Please be certain the ED has a correct phone number & address where you can be reached. 2. Acknowledgement that you will arrange for follow-up care as recommended. 3. Authorization for the Emergency Physician to provide information to your follow-up Physician in order to maximize your care. AT ANY TIME, IF YOUR SYMPTOMS CHANGE SIGNIFICANTLY OR WORSEN OR YOU DEVELOP NEW SYMPTOMS, RETURN TO THE EMERGENCY DEPARTMENT IMMEDIATELY FOR RE-EVALUATION. OUR GOAL IS TO PROVIDE EXCELLENT MEDICAL CARE! WE HOPE THAT WE HAVE MET YOUR EXPECTATIONS DURING YOUR EMERGENCY DEPARTMENT VISIT AND THAT YOU FEEL YOU HAVE RECEIVED EXCELLENT CARE! " Referrals: JULITA REID NP [Primary Care Provider] - Follow up as needed
[2020-07-04 17:24] VITALS: BP 119/80
--- NOTE | 2020-07-04 17:25 | RADIOLOGY REPORT (SQ) ---
EXAM DESCRIPTION: U/S OB TRANSVAGINAL W/O DOP IMAGES COMPLETED DATE/TIME: 07/04/2020 1:52 pm REASON FOR STUDY: 4 weeks gestation right lower quad pain history IU COMPARISON: None. TECHNIQUE: Transvaginal static and realtime grayscale images acquired of the pelvis. Additional torey cted spectral and color Doppler images recorded. All images stored on PACs. CLINICAL AGE: 5 weeks and 1 day [facility] LIMITATIONS: None. FINDINGS: UTERUS: No visualized intrauterine . RIGHT ADNEXA: Ovary not identified due to poor acoustical window. No adnexal free fluid. No adnexal masses. LEFT ADNEXA: Ovary not identified due to poor acoustical window. No adnexal free fluid. No adnexal masses. FREE FLUID: None. OTHER: No other significant finding. IMPRESSION: NO VISUALIZED INTRA- OR EXTRAUTERINE . bHCG LEVEL TOO LOW TO EXPECT VISUALIZATION OF . ECTOPIC CANNOT BE EXCLUDED. FOLLOW-UP ULTRASOUND AND SERIAL BHCG LEVELS STRONGLY RECOMMENDED TO ACCURATELY ASSESS STATU S. TECHNICAL DOCUMENTATION: JOB ID: [id number] [employer]- All Rights Reserved Reading location - IP/workstation name: [email or web address]
== END 2020-07-04 17:33 | disposition home or self-care (01) ==
LOC: ER 12:52
DX: O26.91 Pregnancy related conditions, unspecified, first trimester (principal); R10.31 Right lower quadrant pain; E03.9 Hypothyroidism, unspecified; Z3A.01 Less than 8 weeks gestation of pregnancy; Z88.0 Allergy status to penicillin
CPT/HCPCS: 36415; 76817; 80053; 81001; 84702; 85025; 87086; 99284